=== PATIENT | female | born 1935 | race Caucasian/White ===

== ENCOUNTER 2016-09-10 12:21 | Inpatient (IN) | payer OTHER ==
--- NOTE | 2016-09-10 12:43 | EDPHY ---
HPI/HX/ROS/PE/MDM Narrative: CHIEF COMPLAINT: Cough HPI: The patient is an anticoagulated 81 y/o female, with significant cardiac history, complaining of a productive cough for the last 5 days. She was evaluated by EMS in [place], but refused transport and her son brought her to the ED. She has associated shortness of breath when lying flat and describes clear phlegm with her cough. She denies chest pain, fever, or abdominal pain.The triage nurse noted she was hypoxemic in the 50% range upon arrival here , but she is saturating at 98% with a NRB upon assessment. REVIEW OF SYSTEMS: Aside from elements discussed in the HPI, a comprehensive 10-point review of systems was reviewed and is negative. PMH: Atrial flutter, diastolic heart failure, mitral valve replacement, hypertension, dyslipidemia, ischemic colitis, UTI - MRSA, no home O2 SOCIAL HISTORY: Nonsmoker, son at beside. Shipping And Receiving Clerk: Dr. Holder Prior medical records reviewed including ED visit 05/15/16 for UTI. PHYSICAL EXAM: General:Patient is alert, in no acute distress. SpO2 98% with NRB O2 ENT:Eyes are normal to inspection. ENT inspection normal. Neck: Normal inspection. Full range of motion. Respiratory:No respiratory distress. Poor air movement bilaterally, inspiratory and expiratory wheezing, diffuse rhonchi Cardiovascular: Regular rate and rhythm. Strong peripheral pulses. Normal cap refill. Abdomen:The abdomen is nontender to palpation. There are no peritoneal signs. There are normal bowel sounds. Back: Normal to inspection. No tenderness to palpation. Skin: Normal color. No rash. Warm and dry. Extremities: Normal appearance. Full range of motion. Neuro: Oriented x3. Normal motor function. Normal sensory function. ED Course: This is an 81 y/o female with previous cardiac history presenting with a 5-day history of a productive cough. She has inspiratory and expiratory wheezes and diffuse rales on assessment without respiratory distress. Triage noted her SpO2 was around 50% in triage, however she is saturating at 98% on NRB currently. We will trial her on a nasal cannula instead. Plan for IV, sepsis labs, flu swab, and chest x-ray. Study: Chest x-ray Indication: Cough, hypoxemia Results: Chest x-ray was obtained. The results of the study are Chronic versus recurrent infiltrates, not as severe as 6 months ago. Might this patient be aspirating?If clinically indicated noncontrast CT might be considered to determine if there is actually an infiltrate present versus scarring, and to serve as a baseline. The study was read by the radiologist, Dr. Silva. I viewed the images myself on the PACS system. Patient labs reveal elevated troponin, elevated BNP, and elevated lactate. Combined with her chest x-ray findings, she is likely experiencing an acute CHF exacerbation. EKG ordered. Patient will require admission. The 12 lead EKG was interpreted by myself. ST elevation in III, T inversions in I and avL, new from EKGs in March 2016. See hard copy and/or "tracemaster" electronic copy for interpretation. 1355: Consulted with Dr. Cox, assemblies and installations inspector. He will review EKGs and call me back. 1400: Dr. Cox agrees with my EKG interpretation and thinks these changes are acute. He recommends consult with Dr. Holder. 1409: Consulted with Dr. Holder, assemblies and installations inspector. He reviewed EKGs and plans to take patient to the stores laborer today. We are not calling a cardiac alert, but the cath team has been notified. 1426: Dr. Holder is in the ED assessing patient. MDM: This patient presents with severe hypoxia which seems likely secondary to CHF. Her ECG is concerning to me for possible STEMI, with new ST elevation in III and reciprocal changes in the lateral leads. - Data Points Laboratory Results: Laboratory Results 09/10/16 12:55 09/10/16 12:55 09/10/16 09/10/16 09/10/16 12:55 12:55 12:55 WBC RBC Hgb Hct MCV MCH MCHC RDW Plt Count MPV Neut % (Auto) Lymph % (Auto) [place] % (Auto) Eos % (Auto) Baso % (Auto) Nucleat RBC Rel Count Absolute Neuts (auto) Absolute Lymphs (auto) Absolute Monos (auto) Absolute Eos (auto) Absolute Basos (auto) Absolute Nucleated RBC Immature Gran % Immature Gran # PT 37.6 SEC H SEC (12.0-15.0) INR 3.74 H (0.83-1.16) APTT 63.5 SEC H SEC (23.0-38.0) VBG Lactic Acid 2.3 mmol/L H mmol/L (0.7-2.1) Sodium 138 mEq/L mEq/L (134-144) Potassium 4.4 mEq/L mEq/L (3.5-5.2) Chloride 96 mEq/L L mEq/L (97-110) Carbon Dioxide 30 mEq/l mEq/l (22-31) Anion Gap 12 mEq/L mEq/L (8-16) BUN 49 mg/dL H mg/dL (7-23) Creatinine 1.4 mg/dL H mg/dL (0.6-1.0) Estimated GFR 36 Glucose 156 mg/dL H mg/dL (70-100) Calcium 10.4 mg/dL mg/dL (8.5-10.4) Troponin I 0.830 ng/mL H ng/mL (0-0.034) NT-Pro-B Natriuret Pep 42419 pg/mL H pg/mL (0-450) Influenza Typ A,B (DFA) 09/10/16 09/10/16 12:55 12:45 WBC 10.18 10^3/uL H 10^3/uL (3.80-9.50) RBC 4.00 10^6/uL L 10^6/uL (4.18-5.33) Hgb 13.1 g/dL g/dL (12.6-16.3) Hct 39.8 % % (38.0-47.0) MCV 99.5 fL fL (81.5-99.8) MCH 32.8 pg pg (27.9-34.1) MCHC 32.9 g/dL g/dL (32.4-36.7) RDW 14.2 % % (11.5-15.2) Plt Count 182 10^3/uL 10^3/uL (150-400) MPV 9.8 fL fL (8.7-11.7) Neut % (Auto) 82.6 % H % (39.3-74.2) Lymph % (Auto) 9.0 % L % (15.0-45.0) [place] % (Auto) 7.6 % % (4.5-13.0) Eos % (Auto) 0.0 % L % (0.6-7.6) Baso % (Auto) 0.2 % L % (0.3-1.7) Nucleat RBC Rel Count 0.0 % % (0.0-0.2) Absolute Neuts (auto) 8.41 10^3/uL H 10^3/uL (1.70-6.50) Absolute Lymphs (auto) 0.92 10^3/uL L 10^3/uL (1.00-3.00) Absolute Monos (auto) 0.77 10^3/uL 10^3/uL (0.30-0.80) Absolute Eos (auto) 0.00 10^3/uL L 10^3/uL (0.03-0.40) Absolute Basos (auto) 0.02 10^3/uL 10^3/uL (0.02-0.10) Absolute Nucleated RBC 0.00 10^3/uL 10^3/uL (0-0.01) Immature Gran % 0.6 % % (0.0-1.1) Immature Gran # 0.06 10^3/uL 10^3/uL (0.00-0.10) PT INR APTT VBG Lactic Acid Sodium Potassium Chloride Carbon Dioxide Anion Gap BUN Creatinine Estimated GFR Glucose Calcium Troponin I NT-Pro-B Natriuret Pep Influenza Typ A,B (DFA) NEGATIVE FOR FLU (NEGATIVE) General Time Seen by Provider: 09/10/16 12:34 Initial Vital Signs: Initial Vital Signs Temperature (C) 37.3 C 09/10/16 12:30 Heart Rate 88 09/10/16 12:30 Respiratory Rate 28 H 09/10/16 12:30 Blood Pressure 90/52 L 09/10/16 12:30 O2 Sat (%) 54 L 09/10/16 12:30 O2 Delivery Mode Nasal Cannula O2 (L/minute) 4 Allergies/Adverse Reactions: aspirin Allergy (Verified 09/10/16 12:26) codeine Allergy (Verified 09/10/16 12:26) erythromycin base Allergy (Verified 09/10/16 12:26) influenza virus vacc trivalent, spl [From Fluzone] Allergy (Verified 09/10/16 12 :26) iodine Allergy (Verified 09/10/16 12:26) morphine Allergy (Verified 09/10/16 12:26) Penicillins Allergy (Verified 09/10/16 12:26) Sulfa (Sulfonamide Antibiotics) Allergy (Verified 09/10/16 12:26) Tetracyclines Allergy (Verified 09/10/16 12:26) Home Medications: Medication Instructions Recorded Acetaminophen [Tylenol 325mg (*)] 650 mg PO Q6 PRN #30 tab 03/25/16 Cholecalciferol Vit D3 [Vitamin D3 5,000 units PO DAILY #90 tab 03/25/16 (*)] Nortriptyline HCl [Pamelor 25 mg 75 mg PO HS #30 cap 03/25/16 (*)] Warfarin Sodium [Coumadin 5MG (*)] 5 mg PO DAILY AT 4PM #30 tab 03/25/16 ALPRAZolam [Xanax 0.25 MG (*)] 0.25 mg PO DAILY 09/10/16 ALPRAZolam [Xanax 0.25 MG (*)] 0.25 mg PO DAILY PRN 09/10/16 ALPRAZolam [Xanax 0.25 MG (*)] 0.75 mg PO HS 09/10/16 Amiodarone HCl [Pacerone (*)] 100 mg PO DAILY 09/10/16 Metoprolol Tartrate [Lopressor 50 50 mg PO BID 09/10/16 mg (*)] Torsemide [Demadex] 20 mg PO DAILY10 09/10/16 Departure - Departure Disposition: [facility] Inpatient Acute Clinical Impression: Elevated troponin, Valvular heart disease, Acute on chronic diastolic heart failure due to valvular disease CHF exacerbation Qualifiers: Congestive heart failure type: unspecified congestive heart failure type Qualified Code(s): I50.9 - Heart failure, unspecified Condition: Fair Report Scribed for: Roberto Carlos Arias Report Scribed by: Torri Mcgovern Date of Report: 09/10/16 Time of Report: 12:36 Physician Review and Approval Statement: Portions of this note were transcribed by an ED scribe. I personally performed the history, physical exam, and medical decision making; and confirm the accuracy of the information in the transcribed note.
[2016-09-10 13:12] LABS: % IMMATURE GRANULYOCYTES 0.6 % (0.0-1.1); ABSOLUTE IMMATURE GRANULOCYTES 0.06 10^3/uL (0.00-0.10); ADD DIFF? NO; ADD MORPH? NO; ADD SCAN? NO; ATYPICAL LYMPHOCYTE FLAG 60 (0-99); FRAGMENT RBC FLAG 0 (0-99); HEMATOCRIT 39.8 % (38.0-47.0); HEMOGLOBIN 13.1 g/dL (12.6-16.3); LEFT SHIFT FLG 10 (0-99); LIPEMIA HEMOLYSIS FLAG 80 (0-99); MEAN CELL HEMOGLOBIN 32.8 pg (27.9-34.1); MEAN CELL HEMOGLOBIN CONCENTR. 32.9 g/dL (32.4-36.7); MEAN CELL VOLUME 99.5 fL (81.5-99.8); MEAN PLATELET VOLUME 9.8 fL (8.7-11.7); PLATELET CLUMPS FLAG 0 (0-99); PLATELET COUNT 182 10^3/uL (150-400); RED CELL DISTRIBUTION WIDTH 14.2 % (11.5-15.2)
[2016-09-10 13:24] LABS: ANION GAP 12 mEq/L (8-16); CALCIUM 10.4 mg/dL (8.5-10.4); CARBON DIOXIDE 30 mEq/l (22-31); CHLORIDE 96 mEq/L (97-110); CREATININE 1.4 mg/dL (0.6-1.0); GLOMERULAR FILTRATION RATE 36; GLUCOSE 156 mg/dL (70-100); POTASSIUM 4.4 mEq/L (3.5-5.2); SODIUM 138 mEq/L (134-144)
--- NOTE | 2016-09-10 13:49 | CPEKG ---
Heart Rate: 75 RR Interval: 800 P-R Interval: 212 QRSD Interval: 106 QT Interval: 436 QTC Interval: 487 P [place]: -17 QRS [place]: 30 T Wave [place]: 132 EKG Severity - ABNORMAL ECG - EKG Impression: SINUS RHYTHM EKG Impression: ABNORMAL T, CONSIDER ISCHEMIA, LATERAL LEADS EKG Impression: BORDERLINE PROLONGED QT INTERVAL Electronically Signed By: Paras Cox 12-Sep-2016 09:00:01
[2016-09-10 13:52] LABS: INR 3.74 (0.83-1.16); PROTIME(PATIENT) 37.6 SEC (12.0-15.0)
[2016-09-10 13:53] LABS: APTT 63.5 SEC (23.0-38.0)
[2016-09-10 14:05] LABS: LACGHOST ORDER
[2016-09-10] MEDS ORDERED: FUROSEMIDE 40 MG/4 ML VIAL IVP ONE (14:28)
--- NOTE | 2016-09-10 14:50 | PDGENHP ---
History and Physical - Chief Complaint Cough - History of Present Illness 81-year-old female well known to me history of rheumatic valvular heart disease status post mitral valve replacement 1998 in her usual state of good health until of last week. She began with a dry cough. This persisted through the weekend such that today she was significantly short of breath with a persistent cough. This was nonproductive. This was not associated with chest pain. There was no fever or chills. She was brought to the emergency department by her son. She was found to be profoundly hypoxic and I am asked to evaluate her further. She had a recent admission in May for diastolic heart failure associated with atrial flutter. She has been followed in the [facility] failure [facility] without recent exacerbation. Volume status has been stable. Patient denies palpitations. She has had no syncope or near syncope. She denies PND or orthopnea. Recent nuclear stress test on April 20 showed ejection fraction 56% without ischemic burden. Her echocardiogram done at that time showed a normally functioning mitral valve prosthesis with mild aortic insufficiency moderate tricuspid regurgitation with pulmonary pressure 50 mm of mercury. She has no history of coronary artery disease. Last coronary angiogram was done in 1998. Cardiac Risk include age, hyperlipidemia. On my arrival this afternoon she is sitting comfortably in bed. She is speaking in 3/4 sentences with persistent wet cough. History Information - Allergies/Home Medication List Allergies/Adverse Reactions: aspirin Allergy (Verified 09/10/16 12:26) codeine Allergy (Verified 09/10/16 12:26) erythromycin base Allergy (Verified 09/10/16 12:26) influenza virus vacc trivalent, spl [From Fluzone] Allergy (Verified 09/10/16 12 :26) iodine Allergy (Verified 09/10/16 12:26) morphine Allergy (Verified 09/10/16 12:26) Penicillins Allergy (Verified 09/10/16 12:26) Sulfa (Sulfonamide Antibiotics) Allergy (Verified 09/10/16 12:26) Tetracyclines Allergy (Verified 09/10/16 12:26) Home Medications: ALPRAZolam [Xanax 0.25 MG (*)] 0.25 mg PO DAILY 09/10/16 [Last Taken Unknown] ALPRAZolam [Xanax 0.25 MG (*)] 0.25 mg PO DAILY PRN 09/10/16 [Last Taken Unknown ] ALPRAZolam [Xanax 0.25 MG (*)] 0.75 mg PO HS 09/10/16 [Last Taken 09/09/16] Amiodarone HCl [Pacerone (*)] 100 mg PO DAILY 09/10/16 [Last Taken Unknown] Metoprolol Tartrate [Lopressor 50 mg (*)] 50 mg PO BID 09/10/16 [Last Taken Unknown] Torsemide [Demadex] 20 mg PO DAILY10 09/10/16 [Last Taken Unknown] I have personally reviewed and updated: family history, medical history, social history, surgical history - Past Medical History atrial fibrillation, hyperlipidemia Additional medical history: Long-term chronic anticoagulation use. [place] heart class 3 diastolic heart failure. Depression anxiety. History of epistaxis. History of essential tremor. History of humeral fracture. History of hyperparathyroidism. History of irritable bowel syndrome. History of osteoarthritis. History of osteopenia. - Surgical History Additional surgical history: Placement surgery 1998 - Family History Positive for: non-pertinent - Social History Smoking Status: Never smoked Alcohol Use: None Drug Use: None ( continues to live with her independently. Accompanied today by her son. Sedentary.) Review of Systems Constitutional: Denies: chills, diaphoresis, fever, recent injury, weakness EENMT: Reports: nose congestion Cardiac: Denies: chest pain, edema, irregular heart rate, syncope Respiratory: Reports: cough, shortness of breath. Denies: wheezing Gastrointestinal: Reports: no symptoms Genitourinary: Reports: no symptoms Muscolosketal: Reports: no symptoms Skin: Reports: no symptoms Neurological: Reports: no symptoms Hematologic/Lymphatic: Reports: no symptoms Immunologic/Allergy: Reports: mold allergy, pollen allergy Physical Exam Temp Pulse Resp BP Pulse Ox 37.2 C 79 20 102/68 92 09/10/16 12:35 09/10/16 14:28 09/10/16 14:28 09/10/16 14:28 09/10/16 14:28 Constitutional: other ( mild respiratory distress) Eyes: anicteric sclera, EOMI Ears, Nose, Mouth, Throat: moist mucous membranes Cardiovascular: regular rate and rhythym, other ( mechanical mitral valve closure sound. 2/6 systolic murmur.) Peripheral Pulses: 1+: carotid (R), carotid (L), femoral (R), femoral (L), dorsalis-pedis (R), dorsalis-pedis (L) Respiratory: reduced air movement, expiratory wheeze, inspiratory crackles, respiratory distress, rhonchi Gastrointestinal: normoactive bowel sounds, soft, non-tender abdomen, no palpable masses Genitourinary: no bladder fullness, no bladder tenderness Skin: warm, normal color, other ( Ecchymosis upper extremities) Musculoskeletal: full muscle strength, no muscle tenderness Neurologic: AAOx3, No weakness, No numbness, No pronator drift Psychiatric: interacting appropriately Lymph, Heme, Immunologic: no cervical LAD, no supraclavicular LAD Lab Data & Imaging Review 09/10/16 12:55 09/10/16 12:55 WBC 10.18 10^3/uL (3.80-9.50) H 09/10/16 12:55 RBC 4.00 10^6/uL (4.18-5.33) L 09/10/16 12:55 Hgb 13.1 g/dL (12.6-16.3) 09/10/16 12:55 Hct 39.8 % (38.0-47.0) 09/10/16 12:55 MCV 99.5 fL (81.5-99.8) 09/10/16 12:55 MCH 32.8 pg (27.9-34.1) 09/10/16 12:55 MCHC 32.9 g/dL (32.4-36.7) 09/10/16 12:55 RDW 14.2 % (11.5-15.2) 09/10/16 12:55 Plt Count 182 10^3/uL (150-400) 09/10/16 12:55 MPV 9.8 fL (8.7-11.7) 09/10/16 12:55 Neut % (Auto) 82.6 % (39.3-74.2) H 09/10/16 12:55 Lymph % (Auto) 9.0 % (15.0-45.0) L 09/10/16 12:55 [place] % (Auto) 7.6 % (4.5-13.0) 09/10/16 12:55 Eos % (Auto) 0.0 % (0.6-7.6) L 09/10/16 12:55 Baso % (Auto) 0.2 % (0.3-1.7) L 09/10/16 12:55 Nucleat RBC Rel Count 0.0 % (0.0-0.2) 09/10/16 12:55 Absolute Neuts (auto) 8.41 10^3/uL (1.70-6.50) H 09/10/16 12:55 Absolute Lymphs (auto) 0.92 10^3/uL (1.00-3.00) L 09/10/16 12:55 Absolute Monos (auto) 0.77 10^3/uL (0.30-0.80) 09/10/16 12:55 Absolute Eos (auto) 0.00 10^3/uL (0.03-0.40) L 09/10/16 12:55 Absolute Basos (auto) 0.02 10^3/uL (0.02-0.10) 09/10/16 12:55 Absolute Nucleated RBC 0.00 10^3/uL (0-0.01) 09/10/16 12:55 Immature Gran % 0.6 % (0.0-1.1) 09/10/16 12:55 Immature Gran # 0.06 10^3/uL (0.00-0.10) 09/10/16 12:55 PT 37.6 SEC (12.0-15.0) H 09/10/16 12:55 INR 3.74 (0.83-1.16) H 09/10/16 12:55 APTT 63.5 SEC (23.0-38.0) H 09/10/16 12:55 VBG Lactic Acid 2.3 mmol/L (0.7-2.1) H 09/10/16 12:55 Sodium 138 mEq/L (134-144) 09/10/16 12:55 Potassium 4.4 mEq/L (3.5-5.2) 09/10/16 12:55 Chloride 96 mEq/L (97-110) L 09/10/16 12:55 Carbon Dioxide 30 mEq/l (22-31) 09/10/16 12:55 Anion Gap 12 mEq/L (8-16) 09/10/16 12:55 BUN 49 mg/dL (7-23) H 09/10/16 12:55 Creatinine 1.4 mg/dL (0.6-1.0) H 09/10/16 12:55 Estimated GFR 36 09/10/16 12:55 Glucose 156 mg/dL (70-100) H 09/10/16 12:55 Calcium 10.4 mg/dL (8.5-10.4) 09/10/16 12:55 Troponin I 0.830 ng/mL (0-0.034) H 09/10/16 12:55 NT-Pro-B Natriuret Pep 35379 pg/mL (0-450) H 09/10/16 12:55 Influenza Typ A,B (DFA) NEGATIVE FOR FLU (NEGATIVE) 09/10/16 12:45 Ambulatory Orders Acetaminophen [Tylenol 325mg (*)] 650 mg PO Q6 PRN #30 tab 03/25/16 Cholecalciferol Vit D3 [Vitamin D3 (*)] 5,000 units PO DAILY #90 tab 03/25/16 Nortriptyline HCl [Pamelor 25 mg (*)] 75 mg PO HS #30 cap 03/25/16 Warfarin Sodium [Coumadin 5MG (*)] 5 mg PO DAILY AT 4PM #30 tab 03/25/16 ALPRAZolam [Xanax 0.25 MG (*)] 0.25 mg PO DAILY 09/10/16 ALPRAZolam [Xanax 0.25 MG (*)] 0.25 mg PO DAILY PRN 09/10/16 ALPRAZolam [Xanax 0.25 MG (*)] 0.75 mg PO HS 09/10/16 Amiodarone HCl [Pacerone (*)] 100 mg PO DAILY 09/10/16 Metoprolol Tartrate [Lopressor 50 mg (*)] 50 mg PO BID 09/10/16 Torsemide [Demadex] 20 mg PO DAILY10 09/10/16 Laboratory Tests 09/10/16 09/10/16 12:55 12:55 INR 3.74 H Chloride 96 L BUN 49 H Creatinine 1.4 H Glucose 156 H Troponin I 0.830 H NT-Pro-B Natriuret Pep 05739 H Chest X-Ray results: infiltrate Visualized and Interpreted imaging results: Yes EKG Interpretation: Positive for: other ( EKG today reveals sinus rhythm at 75. Q-waves noted in [address] elevation. T-wave inversions 1 aVL. Compared to EKG from May minimal changes identified.) Assessment & Plan Assessment: CHF exacerbation (Acute)Diastolic. Elevated troponin (Acute) History of atrial fibrillation. History of valvular heart disease status post mitral valve repair. Secondary pulmonary hypertension with PA pressure 50 mm of mercury. Impression: Acute onset of cough, increasing shortness of breath over for day. Associated with an elevated brain atretic peptide, patchy infiltrates on chest x-ray and a mildly elevated troponin. Patient is found to be profoundly hypoxic with room air saturation of less than 70%. EKG not significantly different from May when she was admitted with an episode of diastolic heart failure. The present time she is hemodynamically stable with stable blood pressure and heart rate. With supplemental oxygen she is saturating above 90%. She is resting comfortably flat without complaint. Plan: Recommendations: Admission to PCU. Aggressive diuresis overnight. Considerations for Pulmonary consultation in light of patchy infiltrates query atypical pneumonia versus aspiration pneumonia versus diastolic heart failure versus amiodarone toxicity. Echocardiogram for repeat assessment of mitral valve. Continue serial cardiac enzymes. Blood cultures. Hold amiodarone for now. Continue chronic anticoagulation. No indication for acute angiogram tonight. discussed with patient's family.
[2016-09-10] MEDS ORDERED: ACETAMINOPHEN 325 MG TAB PO PRN (15:07)
[2016-09-10] MEDS ORDERED: WARFARIN SODIUM 5 MG TAB PO SCH (16:00)
[2016-09-10] MEDS ORDERED: WARFARIN SODIUM 4 MG TAB PO ONE (17:00)
[2016-09-10] MEDS: FUROSEMIDE 40 MG/4 ML VIAL IVP SCH (17:07)
[2016-09-10] MEDS: AZITHROMYCIN IV 500 MG in D5W 250 ML IV SCH (18:09)
[2016-09-10 19:26] LABS: COLOR YELLOW; LEUKOCYTE ESTERASE,URINE 3+ (NEGATIVE); NITRITE,URINE NEGATIVE (NEGATIVE)
[2016-09-10 19:30] LABS: BACTERIA 1+ /hpf (NONE SEEN); MUCUS TRACE /lpf (NONE-1+); WBC,URINE 25-50 /hpf (0-3)
[2016-09-10 19:45] LABS: MAGNESIUM 2.1 mg/dL (1.6-2.3)
[2016-09-10] MEDS: ALPRAZolam 0.25 MG TAB PO SCH (20:41)
[2016-09-10] MEDS ORDERED: NORTRIPTYLINE HCL 25 MG CAP PO SCH (21:00)
[2016-09-11 04:33] LABS: % IMMATURE GRANULYOCYTES 0.4 % (0.0-1.1); ABSOLUTE IMMATURE GRANULOCYTES 0.04 10^3/uL (0.00-0.10); ADD DIFF? NO; ADD MORPH? NO; ADD SCAN? NO; ATYPICAL LYMPHOCYTE FLAG 40 (0-99); FRAGMENT RBC FLAG 0 (0-99); HEMOGLOBIN 12.5 g/dL (12.6-16.3); LEFT SHIFT FLG 10 (0-99); LIPEMIA HEMOLYSIS FLAG 80 (0-99); MEAN CELL HEMOGLOBIN 33.1 pg (27.9-34.1); MEAN CELL HEMOGLOBIN CONCENTR. 32.9 g/dL (32.4-36.7); MEAN CELL VOLUME 100.5 fL (81.5-99.8); MEAN PLATELET VOLUME 10.4 fL (8.7-11.7); PLATELET CLUMPS FLAG 10 (0-99); PLATELET COUNT 159 10^3/uL (150-400); RED BLOOD CELL COUNT 3.78 10^6/uL (4.18-5.33); RED CELL DISTRIBUTION WIDTH 14.2 % (11.5-15.2)
[2016-09-11 04:45] LABS: ALANINE AMINOTRANSFERASE 36 IU/L (9-52); ALBUMIN 3.3 g/dL (3.5-5.0); ALKALINE PHOSPHATASE 98 IU/L (38-126); ANION GAP 9 mEq/L (8-16); ASPARTATE AMINOTRANSFERASE 49 IU/L (14-46); BILIRUBIN,TOTAL 0.4 mg/dL (0.1-1.4); CALCIUM 9.7 mg/dL (8.5-10.4); CARBON DIOXIDE 28 mEq/l (22-31); CHLORIDE 97 mEq/L (97-110); CREATININE 1.1 mg/dL (0.6-1.0); GLOMERULAR FILTRATION RATE 48; GLUCOSE 79 mg/dL (70-100); POTASSIUM 3.4 mEq/L (3.5-5.2); SODIUM 134 mEq/L (134-144); TOTAL PROTEIN 6.5 g/dL (6.3-8.2)
[2016-09-11 04:52] LABS: INR 4.3 (0.83-1.16); PROTIME(PATIENT) 42.1 SEC (12.0-15.0)
--- NOTE | 2016-09-11 08:52 | CPEKG ---
Heart Rate: 89 RR Interval: 674 P-R Interval: 208 QRSD Interval: 106 QT Interval: 428 QTC Interval: 521 P [place]: 18 QRS [place]: 34 T Wave [place]: -75 EKG Severity - ABNORMAL ECG - EKG Impression: SINUS RHYTHM EKG Impression: NONSPECIFIC T ABNORMALITIES, DIFFUSE LEADS EKG Impression: PROLONGED QT INTERVAL Electronically Signed By: Paras Cox 12-Sep-2016 09:00:08
[2016-09-11] MEDS ORDERED: PROTOCOL POTASSIUM 1 DOSE MISC PRN (09:24)
[2016-09-11] MEDS ORDERED: PROTOCOL MAGNESIUM 1 DOSE IV PRN (09:24)
[2016-09-11] MEDS: FUROSEMIDE 40 MG/4 ML VIAL IVP SCH (09:39)
[2016-09-11] MEDS: METOPROLOL SUCCINATE XR 50 MG TAB PO SCH (09:39)
[2016-09-11] MEDS: AZITHROMYCIN IV 500 MG in D5W 250 ML IV SCH (09:39)
[2016-09-11] MEDS: ALPRAZolam 0.25 MG TAB PO SCH ×2 (09:40→21:04)
--- NOTE | 2016-09-11 09:57 | PDCARPN ---
Cardiology Progress Note Assessment/Plan: Assessment/plan: 81 yo F with HFpEF, PAFL, mechanical MVR admitted 09/10 with productive cough and profound hypoxia. Clinical picture suggestive of RUL pneumonia. In the setting of pna/hypoxia she also has some heart failure and demand ischemia with small troponin leak 1. Positive troponin: has CAC on chest CT. Last nuc was 04/2010 and did not show ischemia. Her ECG is fairly close to baseline and no CP. Med mx for now, consider outpt nuc. Cont BB. Add statin. Already on warfarin (no ASA for now) . 2. HFpEF: has received lasix. IV. Will switch to oral. 3. Mechanical MVR: normally functioning on echo. Continue warfarin (on hold at the moment for INR 4) 4. RUL pna: possible aspiration? abx started. Appreciate IM consult 5. Hypoxia: pna plus CHF. CT not necessarily suggestive of amio toxicity, but will hold amiodarone for now 6. Hx atrial flutter: currently in NSR. On warfarin. Hold amio. continue BB 7. Pos u/a: culture pending 8. HTN: stable 9. PHTN: mild. 10. ARF: creatinine 1.4 on admisison, 1.1 now. Likely prerenal Greater than 30 minutes was spent in direct patient care, discussion with Dr. Reyes, and chart review. 09/11/16 10:29 Subjective: [place] complains of cough. This is productive of yellow/green sputum. Denies SOB or CP. She reports that she fell out of bed yesterday but did not hit her head; no pain now. She denies abd pain or dysuria. She has not had any bleeding issues recently Reviewed/Discussed With: family, hospitalist Objective: Vital Signs (8 Hrs) Temp Pulse Resp BP Pulse Ox 09/11/16 07:38 36.9 C 96 20 113/59 L 90 L 09/11/16 04:00 37.1 C 77 19 116/52 L 98 Intake/Output (24 Hrs) 09/10/16 09/11/16 09/12/16 05:59 05:59 05:59 Intake Total 450 Output Total 400 Balance 50 Intake: Oral (ml) 450 Output: Urine (ml) 400 Toilet 400 Other: Weight 68.039 kg 59.6 kg Intake Quantity Yes Sufficient Number of Voids Toilet 1 coughing, mildly ill JVP 12. RRR, crisp mechanical S1. No murmur or rub Diffuse rhonchi. Decreased breath sounds RUL Abd soft, NT, ND, no obvious mass No edema Alert and oriented x 3 without gross focal neuro deficits CXR reviewed; MVR, RUL opacity Result Diagrams: 09/11/16 03:41 09/11/16 03:41 Cardiac Labs: Cardiac Lab Results (72 Hrs) 09/10/16 21:00 Troponin I 1.790 H EKG: Serial tracings reviewed, including 03/2016: NSR, isolated JOVANNA in III, resolved in most recent ECG. Diffuse ST abnormalities. ST abnormalities similar to prior Telemetry: NSR Echocardiogram: Reviewed; LVEF 55 without regional WMA. Normally functioning mechanical MVR. PASP 40. mod TR ICD10 Worksheet Patient Problems: Problems Problem Status Onset CHF exacerbation Acute Elevated troponin Acute Acute on chronic diastolic heart failure due to valvular disease Acute Atrial flutter Acute MRSA (methicillin resistant Staphylococcus aureus) Acute 05/11/16 Valvular heart disease Acute
[2016-09-11] MEDS: AMIODARONE HCL 200 MG TAB PO SCH (10:09)
[2016-09-11 10:23] LABS: POTASSIUM 3.3 mEq/L (3.5-5.2)
[2016-09-11] MEDS: ATORVASTATIN CALCIUM 20 MG TAB PO SCH (12:09)
[2016-09-11] MEDS ORDERED: POTASSIUM CL 10 MEQ TAB PO ONE (12:22)
--- NOTE | 2016-09-11 13:41 | ECHO ---
[id number] + + [phone] : : [place] [address] : : [phone] + + Adult Echocardiographic Report + ---------+ :Name: JANNA AZARlaurengiselle Date: 09/11/2016 08:09 AM : : Hospital Admission Number: [id number] Leidy galloway: 206: :: 1935 Gender: Female Height: 62 i n : :Age: 81 yrs Race: WH Weight: 155 lb : :Reason For Study: Eval LV Fx : : BSA: 1.7 met ers2 : :History: CHF, Cough, Mechanical Mitral Valve : + ---------+ MMode/2D Measurements \T\ Calculations IVSd: 0.81 cm LVIDd: 4.2 cm FS: 21.8 % Ao root diam: 2.7 cm LVPWd: 0.87 cm LVIDs: 3.3 cm EDV(Teich): 79.7 ml ACS: 2.0 cm ESV(Teich): 44.2 ml EF(Teich): 44.5 % Normal Measurement Values: + + :LVIDd (3.5-5.7cm) IVSd (0.6-1.1cm) LVPWd (0.6-1.1cm) Aortic Root (2.0-3.7cm)Left Atrium (1.5-4.0cm): :LV Vol(d) (76-115ml) LV Vol(s) (29-48ml) Ejec Fraction (50-65%)PV Brant (0.6- 1.2m/s) TV Brant (0.4-1.0m/s) : :MV E Brant (0.8-1.0m/s)MV A Brant (0.3-1.0m/s)LVOT Brant (0.7-1.2m/s) Asc Ao Brant ( 0.9-1.8m/s) : + + Doppler Measurements \T\ Calculations MV E max brnat: MV V2 mean: MV P1/2t max brant: Ao V2 max: 104.1 cm/sec 101.6 cm/sec 118.1 cm/sec 142.5 cm/sec MV A max brant: MV mean PG: MV P1/2t: 60.8 msec Ao max P.0 cm/sec 4.4 mmHg MVA(P1/2t): 3.6 cm2 8.1 mmHg MV E/A: 0.93 MV V2 VTI: MV dec slope: 24.6 cm 568.7 cm/sec2 AI max brant: LV V1 max: TR max brant: 287.8 cm/sec 73.1 cm/sec 294.5 cm/sec AI max PG: LV V1 max PG: TR max P.7 mmHg 33.1 mmHg 2.1 mmHg RAP systole: 5.0 mmHg AI dec slope: RVSP(TR): 39.7 mmHg 118.0 cm/sec2 AI P1/2t: 714.2 msec Left Ventricle The left ventricle is normal in size. There is normal left ventricular wall thickness. Ejection Fraction = 50-55%. There is inferior and inferoseptal hypokinesis in some views, but not confirmed in all views. There is Doppler evidence for diastolic dysfunction. Left ventricular systolic function is low normal. Right Ventricle The right ventricle is normal in size and function. Atria The left atrium is mildly dilated. Right atrial size is normal. Mitral Valve Mean transmitral gradient is 4 mmHg. There is no mitral regurgitation noted. There is a mechanical mitral valve. Tricuspid Valve There is mild tricuspid regurgitation. Right ventricular systolic pressure is 40mmHg. There is Doppler evidence for mild pulmonary hypertension. Aortic Valve The aortic valve is normal in structure and function. The aortic valve is trileaflet. There is no aortic stenosis. There is no aortic insufficiency. Pulmonic Valve The pulmonic valve is normal in structure and function. There is no pulmonic valvular regurgitation. Great Vessels The aortic root is normal size. Pericardium/Pleural There is no pericardial effusion. Conclusion A complete two-dimensional transthoracic echocardiogram was performed (2D, M-mode, Doppler and color flow Doppler). Ejection Fraction = 50-55%. Left ventricular systolic function is low normal. There is inferior and inferoseptal hypokinesis in some views, but not confirmed in all views The left atrium is mildly dilated. There is a mechanical mitral valve. Mean transmitral gradient is 4 mmHg There is mild tricuspid regurgitation. Right ventricular systolic pressure is 40mmHg. There is Doppler evidence for mild pulmonary hypertension. The aortic valve is normal in structure and function. The aortic valve is trileaflet. There is no pericardial effusion. There is a known hypermobility near the posterior chordae. This is likely subvalvular structure remnants s/p mechanical MVR Compared with 05/2015, LVEF improved. Chordal structure is similar Final Reading Physician: Dr Yohana Webber electronically signed on 09/11/2016 01:40 PM Ordering Physician: Roberto Carlos Arias Performed By: Valerio Romo, EMERSONCS
[2016-09-11] MEDS ORDERED: ALPRAZolam 0.25 MG TAB PO PRN (13:43)
[2016-09-11] MEDS: VANCOMYCIN 125 MG/2.5 ML UDL PO SCH ×2 (14:58→21:04)
[2016-09-11] MEDS: predniSONE 20 MG TAB PO SCH (14:58)
--- NOTE | 2016-09-11 15:51 | GCON ---
[f rep st] CONSULTATION INTERNAL MEDICINE CONSULT DATE OF CONSULTATION: 09/11/2016 REFERRING PHYSICIAN: Yohana Webber MD REASON FOR REFERRAL: Medical management of patient with possible pneumonia. HISTORY OF PRESENT ILLNESS: The patient is an 81-year-old with a history significant for congestive heart failure and valvular heart disease. She also was in chronic atrial fibrillation and anticoag ulated with Coumadin. She states she has a chronic cough and shortness of breath and has not noted a significant difference, however, she was brought in yesterday by her son because he noted increasi ng dry cough since last with increasing shortness of breath and dyspnea on exertion at home . She apparently has had a cough since that has worsened and became much more dyspneic. S he denies any fevers or chills. She has had no chest pain. She has had no significant edema. She states it is hard to comment on her shortness of breath since she is typically not very active at [facility]. She was admitted by Dr. Holder, given her heart disease, and on admission her O2 saturati on was quite low at around 50% on room air. She was started on a non-rebreather, treated with antib iotics for presumed pneumonia, as well as Lasix for possible fluid overload. Her respiratory status has improved, and she is down to 4 L by nasal cannula, however, continues to have a fairly producti ve cough and appears quite dyspneic to me, although she denies significant symptoms. She has a wilberto te tobacco history. She smoked at least 20 years, but quit over 40 years ago. She has a history of what she calls allergies that cause this chronic cough and has been prescribed ProAir in the past. She denies any significant weight changes. No other nausea, vomiting, belching. She has no lower extremity edema. She has chronic arthritis in her knees and denies any other neurologic complaints. REVIEW OF SYSTEMS: 10-point review of systems was done and is negative except as stated in HPI. PAST MEDICAL HISTORY: 1. Diastolic heart failure, followed by Dr. Holder. 2. Valvular heart disease with severe mitral regurgitation, status post mitral valve replacement. 3. Chronic atrial fibrillation, on anticoagulation and rate control. 4. Essential tremor. 5. Osteopenia. 6. Osteoarthritis. 7. Irritable bowel syndrome. 8. Dyslipidemia. 9. Reactive airways disease on ProAir. 10. Hyperparathyroidism with elevated calciums noted. PAST SURGICAL HISTORY: Includes an appendectomy, cataract surgery, colon resection, hysterectomy, u nilateral oophorectomy, mitral valve replacement, and tonsillectomy. FAMILY HISTORY: Negative for heart disease. SOCIAL HISTORY: She is and lives with her . She has 3 children. One of her salbador rs lives in the house with them. She rarely drinks alcohol, and quit smoking in the mid 70s. She s aid she started smoking in the early 50s in high school, and increased her smoking use once she got a job. She ambulates with the use of a walker occasionally, but not always. CURRENT MEDICATIONS: Include amiodarone 100 mg daily, Coumadin, Demadex, ProAir as needed, Toprol-X L, Zantac, Zyrtec, clonazepam, nortriptyline. ALLERGIES: Include aspirin, codeine, erythromycin, flu vaccine, morphine, penicillin, sulfa, and te tracycline. PHYSICAL EXAM: VITAL SIGNS: She has been afebrile, heart rate 85, blood pressure 98/50, respiratio ns 20, she is 97% on 4 L. GENERAL: She is an ill-appearing 81-year-old who is coughing throughout most of my exam. She is alert and oriented. HEENT: Head is atraumatic. Pupils are small, but equ al. Extraocular movements intact. Sclerae anicteric. Mucous membranes are slightly dry. Orophary nx is clear. NECK: Supple. No adenopathy. HEART: Regular, with crisp valve sounds noted anterio rly. No obvious murmur. LUNGS: She has decreased breath sounds bilateral lobes with crackles bila terally, right slightly greater than left. No obvious expiratory wheezing. ABDOMEN: Soft. No mas ses. Normal bowel sounds. EXTREMITIES: No significant pitting edema. She does have some varicosi ties noted and some chronic venous stasis changes. MUSCULOSKELETAL: She has just a trace effusion in her left knee, none on her right. No obvious joint deformities. SKIN: Intact, occasional ecchy chiquis. NEUROLOGIC: Her speech is fairly fluent. She is moving all 4 extremities. LABORATORY DATA: CBC shows white count of 9.2, hemoglobin 12.5, platelet count of 159. INR is 4.3. Electrolytes are unremarkable. BUN 46, creatinine 1.1. LFTs are normal. Troponins are slightly elevated at 1.4. Urinalysis shows mild pyuria. Electrocardiogram: She is in sinus rhythm. Conduc tion delay. Some diffuse nonspecific T-wave changes. Chest CT: Infiltrate in the right upper lobe . Bibasilar densities, likely scarring. ASSESSMENT AND PLAN: 81-year-old presents with increased cough and profound hypoxia with minimal no te of pulmonary edema on her chest CT. 1. Pneumonia, cannot rule out aspiration versus community-acquired pneumonia. Will continue curren t antibiotics as she has improved on these. We will do a speech evaluation and video as recommended . Will check respiratory panel as well as sputum culture. 2. Acute respiratory failure, likely secondary to pneumonia with possible reactive airways disease or chronic obstructive pulmonary disease exacerbation. She does have a remote history of tobacco us e and certainly her lung exam is abnormal. Will add steroids and DuoNeb as well as Mucinex. Will f ollow her respiratory status. 3. Acute on chronic diastolic congestive heart failure. Echocardiogram done this admission shows e jection fraction of 55%. Will defer to Cardiology regarding treatment of the congestive heart failu re, although I suspect most of her symptoms are likely respiratory in nature. 4. Essential tremor, stable. 5. Osteopenia. Follow up with outpatient physician. 6. Atrial fibrillation, on anticoagulation, supratherapeutic. Will monitor INRs and hold warfarin for the time being. 7. History of hyperparathyroidism. Current calcium levels are within normal limits. Outpatient fo llowup. 8. Deep vein thrombosis prophylaxis. Patient is anticoagulated. 9. Elevated troponin. I suspect this likely is related to her profound hypoxia on admission and do es not represent acute coronary syndrome. Will continue to trend troponins as needed. /[id number]/MODL
[2016-09-11] MEDS: IPRATROPIUM/ALBUTEROL 3 ML DEYVIAL IH SCH (16:35)
[2016-09-11 18:29] LABS: POTASSIUM 4.7 mEq/L (3.5-5.2)
[2016-09-11] MEDS: guaiFENesin 600 MG TAB.ER PO SCH (21:04)
[2016-09-11] MEDS: NORTRIPTYLINE HCL 25 MG CAP PO SCH (21:05)
[2016-09-12] MEDS: IPRATROPIUM/ALBUTEROL 3 ML DEYVIAL IH SCH ×5 (00:20→21:55)
[2016-09-12 04:32] LABS: HEMATOCRIT 36.9 % (38.0-47.0); HEMOGLOBIN 11.8 g/dL (12.6-16.3); MEAN CELL HEMOGLOBIN 31.9 pg (27.9-34.1); MEAN CELL VOLUME 99.7 fL (81.5-99.8); RED BLOOD CELL COUNT 3.7 10^6/uL (4.18-5.33); RED CELL DISTRIBUTION WIDTH 13.6 % (11.5-15.2)
[2016-09-12 04:46] LABS: INR 4.11 (0.83-1.16); PROTIME(PATIENT) 40.6 SEC (12.0-15.0)
[2016-09-12 04:50] LABS: ANION GAP 8 mEq/L (8-16); CALCIUM 9.9 mg/dL (8.5-10.4); CARBON DIOXIDE 28 mEq/l (22-31); CHLORIDE 97 mEq/L (97-110); CREATININE 0.8 mg/dL (0.6-1.0); GLOMERULAR FILTRATION RATE > 60; GLUCOSE 139 mg/dL (70-100); MAGNESIUM 2.1 mg/dL (1.6-2.3); POTASSIUM 4.9 mEq/L (3.5-5.2); SODIUM 133 mEq/L (134-144)
[2016-09-12] MEDS: ATORVASTATIN CALCIUM 20 MG TAB PO SCH (09:37)
[2016-09-12] MEDS: METOPROLOL SUCCINATE XR 50 MG TAB PO SCH (09:37)
[2016-09-12] MEDS: predniSONE 20 MG TAB PO SCH (09:37)
[2016-09-12] MEDS: AZITHROMYCIN IV 500 MG in D5W 250 ML IV SCH (09:37)
[2016-09-12] MEDS: guaiFENesin 600 MG TAB.ER PO SCH ×2 (09:38→21:10)
[2016-09-12] MEDS: ALPRAZolam 0.25 MG TAB PO SCH ×2 (09:39→21:10)
[2016-09-12] MEDS: TORSEMIDE 20 MG TAB PO SCH (10:54)
[2016-09-12] MEDS: VANCOMYCIN 125 MG/2.5 ML UDL PO SCH ×2 (10:54→21:10)
[2016-09-12] MEDS ORDERED: predniSONE 20 MG TAB PO SCH (11:06)
--- NOTE | 2016-09-12 11:14 | HOSPPROG ---
Hospitalist Progress Note Assessment/Plan: 81-year-old with remote tobacco history presents with increased cough shortness of breath. She does have a history of valvular heart disease associated with some diastolic dysfunction. # acute respiratory failure likely multifactorial due to COPD exacerbation from bronchopneumonia either from viral etiology (see PCR) or community- acquired. # bronchopneumonia: Currently on ceftriaxone and Zithromax will likely discharge on Ceftin and Zithromax. PCR did show metapneumovirus, which may be etiology. This is complicated by acute COPD exacerbation and patient appears to be responding well to steroids and nebulizers. * Continue antibiotics will change Zithromax to oral * Continue prednisone at 60 mg daily decrease to 40 daily at discharge and continue wean * Continue duo nebs for now * Oxygen as needed, patient may need oxygen at discharge. # elevated blood sugars likely secondary to steroids will monitor. # valvular heart disease with severe mitral regurg status post mechanical valve replacement. On anticoagulation with Coumadin # diastolic dysfunction with acute congestive heart failure on admission. Diuresis per Cardiology. Patient appears fairly euvolemic at this time. # chronic atrial fibrillation on rate control and anticoagulation * Monitor daily INR while on antibiotics # the rest for medical issues are noted and stable. Disposition: Patient will likely need 1-2 more days of inpatient hospitalization for her acute respiratory failure and COPD exacerbation. She will need home care with physical therapy at the time of discharge, she is refusing any type of inpatient rehab at this time. Subjective: Patient does feel a bit better today still has significant cough and ongoing oxygen requirements. She denies any chest pain Objective: Vital Signs Temp Pulse Resp BP Pulse Ox 35.9 C L 69 20 90/53 L 96 09/12/16 07:53 09/12/16 07:53 09/12/16 07:53 09/12/16 07:53 09/12/16 07:53 Microbiology 09/11/16 16:50 - Final Sputum, Expectorated Laboratory Results 09/12/16 03:33 09/12/16 03:33 09/11/16 09/12/16 09/13/16 05:59 05:59 05:59 Intake Total 450 1320 Output Total 400 600 Balance 50 720 PT 40.6 SEC (12.0-15.0) H 09/12/16 03:33 INR 4.11 (0.83-1.16) H 09/12/16 03:33 - Physical Exam Constitutional: no apparent distress, chronically ill appearing Eyes: PERRL Ears, Nose, Mouth, Throat: moist mucous membranes Cardiovascular: regular rate and rhythym, systolic murmur, No edema Respiratory: expiratory wheeze, inspiratory crackles, bronchial breath sounds, respiratory distress, other (Cough) Gastrointestinal: normoactive bowel sounds, soft, non-tender abdomen, no palpable masses Genitourinary: no bladder fullness Skin: warm, normal color Musculoskeletal: generalized weakness Neurologic: AAOx3 Psychiatric: interacting appropriately, not anxious, not encephalopathic ICD10 Worksheet Patient Problems: Problems Problem Status Onset Valvular heart disease Acute Atrial flutter Acute Acute on chronic diastolic heart failure due to valvular disease Acute MRSA (methicillin resistant Staphylococcus aureus) Acute 05/11/16 CHF exacerbation Acute Elevated troponin Acute
--- NOTE | 2016-09-12 11:59 | PDCARPN ---
Cardiology Progress Note Assessment/Plan: Assessment/plan: 81 yo F with HFpEF, PAFL, mechanical MVR admitted 09/10 with productive cough and profound hypoxia. Clinical picture suggestive of RUL pneumonia. Respiratory panel positive for human metapneumovirus. In the setting of hypoxia she also has some heart failure and demand ischemia with small troponin leak. 1. Positive troponin: has CAC on chest CT. Last nuc was 04/2010 and did not show ischemia. Her ECG is fairly close to baseline and no CP. Med mx for now, consider outpt nuc. Cont BB. Add statin. Already on warfarin (no ASA for now) . 2. HFpEF: has received lasix. IV. Changed to oral demadex 09/11 3. Mechanical MVR: normally functioning on echo. Continue warfarin (on hold at the moment for INR 4) 4. RUL pna: Appreciate IM consult. Appears viral. On steroids. 5. Hypoxia: pna plus CHF. CT not necessarily suggestive of amio toxicity, but will hold amiodarone for now 6. Hx atrial flutter: currently in NSR. On warfarin. Hold amio. continue BB 7. Pos u/a: contaminated 8. HTN: stable 9. PHTN: mild. 10. ARF: creatinine 1.4 on admisison, 1.1 now. Likely prerenal Discussed with Dr. Reyes and patient's daughter. 09/12/16 12:00 Subjective: Eboni has peristent cough and SOB. No CP Reviewed/Discussed With: family, hospitalist Objective: Vital Signs (8 Hrs) Temp Pulse Resp BP Pulse Ox 09/12/16 07:53 35.9 C L 69 20 90/53 L 96 09/12/16 05:20 74 15 95 09/12/16 04:00 36.4 C 84 18 105/61 94 Intake/Output (24 Hrs) 09/11/16 09/12/16 09/13/16 05:59 05:59 05:59 Intake Total 450 1320 Output Total 400 600 Balance 50 720 Intake: Oral (ml) 450 1000 IV Infused (ml) 320 Azithromycin IV 500 mg In 260 D5w 250 ml @ 255 mls/hr IV DAILY [facility] Rx#: [id number] cefTRIAXone 1 GM/DEXTROSE 60 50 ml @ 100 mls/hr IV DAILY [facility] Rx#:[id number] Output: Urine (ml) 400 600 Bedside Commode 200 Toilet 400 400 Other: Weight 68.039 kg 59.8 kg Intake Quantity Yes Yes Sufficient Number of Voids Incontinence 1 Toilet 1 Number of Stools Toilet 0 coughing JVP 10 RRR crisp mech S1. No murmur, rub, gallop Diffuse insp and exp wheeze No edema Result Diagrams: 09/12/16 03:33 09/12/16 03:33 Cardiac Labs: Cardiac Lab Results (72 Hrs) 09/11/16 09/10/16 03:41 21:00 Troponin I 1.460 H 1.790 H Telemetry: NSR ICD10 Worksheet Patient Problems: Problems Problem Status Onset Valvular heart disease Acute Atrial flutter Acute Acute on chronic diastolic heart failure due to valvular disease Acute MRSA (methicillin resistant Staphylococcus aureus) Acute 05/11/16 CHF exacerbation Acute Elevated troponin Acute
[2016-09-12 20:10] LABS: POTASSIUM 4.5 mEq/L (3.5-5.2)
[2016-09-12] MEDS: NORTRIPTYLINE HCL 25 MG CAP PO SCH (21:10)
[2016-09-13 05:47] LABS: INR 4.19 (0.83-1.16); PROTIME(PATIENT) 41.2 SEC (12.0-15.0)
[2016-09-13 05:53] LABS: ANION GAP 9 mEq/L (8-16); CALCIUM 10.1 mg/dL (8.5-10.4); CARBON DIOXIDE 31 mEq/l (22-31); CHLORIDE 98 mEq/L (97-110); CREATININE 0.9 mg/dL (0.6-1.0); GLOMERULAR FILTRATION RATE > 60; GLUCOSE 108 mg/dL (70-100); MAGNESIUM 2.1 mg/dL (1.6-2.3); POTASSIUM 4.5 mEq/L (3.5-5.2); SODIUM 138 mEq/L (134-144)
[2016-09-13] MEDS: IPRATROPIUM/ALBUTEROL 3 ML DEYVIAL IH SCH ×4 (06:08→21:58)
[2016-09-13] MEDS: AZITHROMYCIN 250 MG TAB PO SCH ×2 (09:49→09:51)
[2016-09-13] MEDS: TORSEMIDE 20 MG TAB PO SCH (09:49)
[2016-09-13] MEDS: ATORVASTATIN CALCIUM 20 MG TAB PO SCH (09:50)
[2016-09-13] MEDS: METOPROLOL SUCCINATE XR 50 MG TAB PO SCH (09:50)
[2016-09-13] MEDS: guaiFENesin 600 MG TAB.ER PO SCH ×2 (09:50→20:05)
[2016-09-13] MEDS: ALPRAZolam 0.25 MG TAB PO SCH ×2 (09:50→20:05)
[2016-09-13] MEDS: VANCOMYCIN 125 MG/2.5 ML UDL PO SCH ×2 (09:54→20:05)
--- NOTE | 2016-09-13 10:23 | HOSPPROG ---
Hospitalist Progress Note Assessment/Plan: 81-year-old with remote tobacco history presents with increased cough shortness of breath. She does have a history of valvular heart disease associated with some diastolic dysfunction. # acute respiratory failure likely multifactorial due to COPD exacerbation from bronchopneumonia either from viral etiology (see PCR) or community- acquired. # bronchopneumonia: Currently on ceftriaxone and Zithromax will likely discharge on Ceftin and Zithromax. PCR did show metapneumovirus, which may be etiology. This is complicated by acute COPD exacerbation and patient appears to be responding well to steroids and nebulizers. * Continue antibiotics will change Zithromax to oral * Continue prednisone at 60 mg daily decrease to 40 daily at discharge and continue wean * Continue duo nebs for now * Oxygen as needed, patient may need oxygen at discharge. # elevated blood sugars likely secondary to steroids will monitor. # valvular heart disease with severe mitral regurg status post mechanical valve replacement. On anticoagulation with Coumadin. Still with elevated INR. Holding Coumadin. #?Amiodarone Toxicity. Cards holding Amiodarone # diastolic dysfunction with acute congestive heart failure on admission. Diuresis per Cardiology. Patient appears fairly euvolemic at this time. Continue with fluid restriction. Continue Torsemide # chronic atrial fibrillation on rate control and anticoagulation * Monitor daily INR while on antibiotics * elevated INR at this time # the rest for medical issues are noted and stable. Disposition: Patient will likely need 1-2 more days of inpatient hospitalization for her acute respiratory failure and COPD exacerbation. She will need home care with physical therapy at the time of discharge, she is refusing any type of inpatient rehab at this time. Overall she continues to improve. Expect that she will be ready for d/c soon. Subjective: Feels better. Still with Cough. INR is still elevated. First encounter with this patient Objective: Vital Signs Temp Pulse Resp BP Pulse Ox 36.6 C 74 18 103/50 L 96 09/13/16 07:37 09/13/16 09:50 09/13/16 07:37 09/13/16 09:50 09/13/16 07:37 Microbiology 09/11/16 16:50 - Final Sputum, Expectorated Laboratory Results 09/12/16 03:33 09/13/16 04:13 09/12/16 09/13/16 09/14/16 05:59 05:59 05:59 Intake Total 1320 1225 Output Total 600 Balance 720 1225 PT 41.2 SEC (12.0-15.0) H 09/13/16 04:13 INR 4.19 (0.83-1.16) H 09/13/16 04:13 - Physical Exam Constitutional: no apparent distress, appears nourished, not in pain Eyes: PERRL, anicteric sclera, EOMI Ears, Nose, Mouth, Throat: moist mucous membranes, hearing normal, ears appear normal, no oral mucosal ulcers Cardiovascular: regular rate and rhythym, no murmur, rub, or gallop, No edema Respiratory: expiratory wheeze, rhonchi, No respiratory distress Gastrointestinal: normoactive bowel sounds, soft, non-tender abdomen, no palpable masses Genitourinary: no bladder fullness Skin: warm Neurologic: AAOx3 Psychiatric: interacting appropriately, not anxious ICD10 Worksheet Patient Problems: Problems Problem Status Onset Acute on chronic diastolic heart failure due to valvular disease Acute CHF exacerbation Acute Elevated troponin Acute Valvular heart disease Acute Atrial flutter Acute MRSA (methicillin resistant Staphylococcus aureus) Acute 05/11/16
--- NOTE | 2016-09-13 12:09 | PDCARPN ---
Cardiology Progress Note Assessment/Plan: Assessment/plan: 81 yo F with HFpEF, PAFL, mechanical MVR admitted 09/10 with productive cough and profound hypoxia. Clinical picture suggestive of RUL pneumonia. Respiratory panel positive for human metapneumovirus. In the setting of hypoxia she also has some heart failure and demand ischemia with small troponin leak. 1. Positive troponin: has CAC on chest CT. Last nuc was 04/2010 and did not show ischemia. Her ECG is fairly close to baseline and no CP. Med mx for now, consider outpt nuc. Cont BB. Add statin. Already on warfarin (no ASA for now) . 2. HFpEF: has received lasix. IV. Changed to oral demadex 09/11 . Appears euvolemic 3. Mechanical MVR: normally functioning on echo. Continue warfarin (on hold at the moment for INR 4) 4. RUL pna: Appreciate IM consult. Appears viral but some concern about community-acquired bacterial pneumonia as well. Therefore she is on antibiotics. On steroids. 5. Hypoxia: pna plus CHF. CT not necessarily suggestive of amio toxicity, but will hold amiodarone for now 6. Hx atrial flutter: currently in NSR. On warfarin. Hold amio. continue BB 7. Pos u/a: contaminated 8. HTN: stable 9. PHTN: mild. 10. ARF: creatinine 1.4 on admisison, 1.1 now. Likely prerenal 09/13/16 12:10 Subjective: Eboni complains of persistent cough. She is not particularly short of breath. No angina. Objective: Vital Signs (8 Hrs) Temp Pulse Resp BP Pulse Ox 09/13/16 11:55 36.1 C 86 20 123/59 H 94 09/13/16 10:43 72 90 L 09/13/16 09:50 74 103/50 L 09/13/16 07:37 36.6 C 74 18 103/50 L 96 Intake/Output (24 Hrs) 09/12/16 09/13/16 09/14/16 05:59 05:59 05:59 Intake Total 1320 1225 Output Total 600 Balance 720 1225 Intake: Oral (ml) 1000 900 IV Infused (ml) 320 325 Azithromycin IV 500 mg In 260 265 D5w 250 ml @ 255 mls/hr IV DAILY [facility] Rx#: [id number] cefTRIAXone 1 GM/DEXTROSE 60 60 50 ml @ 100 mls/hr IV DAILY [facility] Rx#:[id number] Output: Urine (ml) 600 Bedside Commode 200 Toilet 400 Other: Weight 59.8 kg 58.8 kg Intake Quantity Yes Sufficient Number of Voids Bedside Commode 3 Incontinence 1 Toilet 1 Number of Stools Toilet 0 Coughing throughout. JVP less than 10. Regular rate and rhythm. Fleming mechanical S1. Scattered rhonchi throughout all lung [place]. Extremities are warm without edema. Result Diagrams: 09/12/16 03:33 09/13/16 04:13 Cardiac Labs: Cardiac Lab Results (72 Hrs) 09/11/16 09/10/16 03:41 21:00 Troponin I 1.460 H 1.790 H ICD10 Worksheet Patient Problems: Problems Problem Status Onset Valvular heart disease Acute Atrial flutter Acute Acute on chronic diastolic heart failure due to valvular disease Acute MRSA (methicillin resistant Staphylococcus aureus) Acute 05/11/16 CHF exacerbation Acute Elevated troponin Acute
[2016-09-13] MEDS: NORTRIPTYLINE HCL 25 MG CAP PO SCH (20:05)
[2016-09-13 20:11] LABS: POTASSIUM 4.7 mEq/L (3.5-5.2)
[2016-09-14 04:47] LABS: INR 4.11 (0.83-1.16); PROTIME(PATIENT) 40.6 SEC (12.0-15.0)
[2016-09-14 04:48] LABS: POTASSIUM 4.4 mEq/L (3.5-5.2)
[2016-09-14] MEDS: IPRATROPIUM/ALBUTEROL 3 ML DEYVIAL IH SCH ×3 (05:45→16:39)
[2016-09-14] MEDS ORDERED: AZITHROMYCIN 250 MG TAB PO ONE (08:22)
--- NOTE | 2016-09-14 08:29 | HOSPPROG ---
Hospitalist Progress Note Assessment/Plan: # acute hypoxic resp failure, multifactorial # CAP, suspect viral but given the severity of her hypoxia would complete short course of abx - extreme caution with azkeara given her long QT - one last dose (250mg) today then dc; I note she is allergic to tetracyclines which complicates tx - cont rocephin today, plan a total of 7 days of tx (stop date 09/16/16) # hx c. dif - cont supperssive vanc PO (125mg PO BID) for 5 days post abx discontinuation # COPD exacerbation - cont pred today, stop on discharge # MVR mechanical - on coumadin # supratherapeutic INR - holding coumadin # acute on chronic diastolic CHF exacerbation - diuresis per cards # holding amiodarone given concern for toxicity ## chart reviewed tele reviewed - sinus CT reviewed Subjective: waking up; still coughing Objective: Vital Signs Temp Pulse Resp BP Pulse Ox 36.4 C 73 20 122/60 H 99 09/14/16 07:57 09/14/16 07:57 09/14/16 07:57 09/14/16 07:57 09/14/16 07:57 Microbiology 09/11/16 16:50 - Final Sputum, Expectorated Sputum Culture - Final 09/11/16 10:17 Urine Culture - Final Urine,Clean Catch Five Or More [place] Types Strep Dysgalactiae Grp C/G Laboratory Results 09/12/16 03:33 09/14/16 03:45 09/13/16 09/14/16 09/15/16 05:59 05:59 05:59 Intake Total 1225 910 Output Total 700 Balance 1225 210 PT 40.6 SEC (12.0-15.0) H 09/14/16 03:45 INR 4.11 (0.83-1.16) H 09/14/16 03:45 - Physical Exam Constitutional: no apparent distress, not in pain Cardiovascular: regular rate and rhythym, other (S1 click, systolic murmur) Respiratory: no respiratory distress, no rales or rhonchi, clear to auscultation ICD10 Worksheet Patient Problems: Problems Problem Status Onset Valvular heart disease Acute Atrial flutter Acute Acute on chronic diastolic heart failure due to valvular disease Acute MRSA (methicillin resistant Staphylococcus aureus) Acute 05/11/16 CHF exacerbation Acute Elevated troponin Acute
[2016-09-14] MEDS: predniSONE 20 MG TAB PO SCH (09:10)
[2016-09-14] MEDS: METOPROLOL SUCCINATE XR 50 MG TAB PO SCH (09:10)
[2016-09-14] MEDS: VANCOMYCIN 125 MG/2.5 ML UDL PO SCH ×2 (09:10→19:39)
[2016-09-14] MEDS: ATORVASTATIN CALCIUM 20 MG TAB PO SCH (09:11)
[2016-09-14] MEDS: ALPRAZolam 0.25 MG TAB PO SCH ×2 (09:11→19:38)
[2016-09-14] MEDS: guaiFENesin 600 MG TAB.ER PO SCH ×2 (09:11→19:39)
[2016-09-14] MEDS: TORSEMIDE 20 MG TAB PO SCH (10:20)
[2016-09-14] MEDS: AMIODARONE HCL 200 MG TAB PO SCH (10:20)
--- NOTE | 2016-09-14 15:10 | PDCARPN ---
Cardiology Progress Note Assessment/Plan: Assessment/plan: 81 yo F with HFpEF, PAFL, mechanical MVR admitted 09/10 with productive cough and profound hypoxia. Clinical picture suggestive of RUL pneumonia. Respiratory panel positive for human metapneumovirus. In the setting of hypoxia she also has some heart failure and demand ischemia with small troponin leak. 1. Positive troponin: has CAC on chest CT. Last nuc was 04/2010 and did not show ischemia. Her ECG is fairly close to baseline and no CP. Med mx for now, consider outpt nuc. Cont BB. Add statin. Already on warfarin (no ASA for now) . 2. HFpEF: has received lasix. IV. Changed to oral demadex 09/11 . Appears euvolemic 3. Mechanical MVR: normally functioning on echo. Continue warfarin (on hold at the moment for INR 4) 4. RUL pna: Appreciate IM consult. Appears viral but some concern about community-acquired bacterial pneumonia as well. Therefore she is on antibiotics. On steroids. 5. Hypoxia: pna plus CHF. CT not necessarily suggestive of amio toxicity, but will hold amiodarone for now . Will likely discontinue amiodarone upon discharge. 6. Hx atrial flutter: currently in NSR. On warfarin. continue BB 7. HTN: stable 8. PHTN: mild. 9. ARF: creatinine 1.4 on admission. Now improved. 09/14/16 15:11 Subjective: Overall she feels better. Breathing is improved. Cough is less. No angina. Objective: Vital Signs (8 Hrs) Temp Pulse Resp BP Pulse Ox 09/14/16 11:55 36.3 C 77 20 115/64 91 L 09/14/16 10:51 74 16 94 09/14/16 07:57 36.4 C 73 20 122/60 H 99 Intake/Output (24 Hrs) 09/13/16 09/14/16 09/15/16 05:59 05:59 05:59 Intake Total 1225 910 Output Total 700 Balance 1225 210 Intake: Oral (ml) 900 910 IV Infused (ml) 325 Azithromycin IV 500 mg In 265 D5w 250 ml @ 255 mls/hr IV DAILY [facility] Rx#: [id number] cefTRIAXone 1 GM/DEXTROSE 60 50 ml @ 100 mls/hr IV DAILY [facility] Rx#:[id number] Output: Urine (ml) 700 Toilet 700 Other: Weight 58.8 kg 59.7 kg Number of Voids Bedside Commode 3 Incontinence 1 Toilet 1 appears fatigued. Lying flat in bed. JVP less than 10. Regular rate and rhythm. [place] mechanical S1. Occasional scattered rhonchi throughout all lung [place]. Extremities are warm without edema. Result Diagrams: 09/12/16 03:33 09/14/16 03:45 Telemetry: NSR ICD10 Worksheet Patient Problems: Problems Problem Status Onset Valvular heart disease Acute Atrial flutter Acute Acute on chronic diastolic heart failure due to valvular disease Acute MRSA (methicillin resistant Staphylococcus aureus) Acute 05/11/16 CHF exacerbation Acute Elevated troponin Acute
[2016-09-14 18:40] LABS: POTASSIUM 4.2 mEq/L (3.5-5.2)
[2016-09-14] MEDS: NORTRIPTYLINE HCL 25 MG CAP PO SCH (19:38)
[2016-09-15] MEDS: IPRATROPIUM/ALBUTEROL 3 ML DEYVIAL IH SCH ×5 (02:03→22:30)
[2016-09-15 04:56] LABS: MAGNESIUM 2.1 mg/dL (1.6-2.3); POTASSIUM 4.1 mEq/L (3.5-5.2)
--- NOTE | 2016-09-15 09:40 | HOSPPROG ---
Hospitalist Progress Note Assessment/Plan: 81-year-old with remote tobacco history presents with increased cough shortness of breath. She does have a history of valvular heart disease associated with some diastolic dysfunction. Today is my first encounter with the patient. Chart reviewed. Reviewed her care with MARLYN Kwan cardiology. # acute respiratory failure -likely multifactorial due to COPD exacerbation from bronchopneumonia # bronchopneumonia/CAP: finished azithro allergic to tetracyclines cont Rocephin/ stop date of 09/16 #COPD exacerbation/ on prednisone #Hx of C diff suppressive therapy with vanco PO BID for 5 days post abx discontinuation # MVR on OAC/ coumadin on hold due to elevated INR # acute on chronic diastolic dysfunction Diuresis per Cardiology. # chronic atrial fibrillation on rate control and anticoagulation INR supratherapeutic amio # the rest for medical issues are noted and stable Plan: she will have finished abx after tomorrow's dose, would recommend weaning off prednisone/ (prednisone 20 mg x 3 days, then Prednisone 10 mg daily then stop), treat with Vancomycin x 5 days after dc/ will need a script for this. If lung sounds have improved tomorrow, she should be fine for dc. Will need a repeat chest xray in 6 weeks for f/u care. Subjective: Eboni is tired/ didn't sleep well last night/ anxious to go home. Objective: Vital Signs Temp Pulse Resp BP Pulse Ox 36.6 C 74 19 144/75 H 100 09/15/16 07:56 09/15/16 07:56 09/15/16 07:56 09/15/16 07:56 09/15/16 07:56 Laboratory Results 09/12/16 03:33 09/15/16 04:06 09/14/16 09/15/16 09/16/16 05:59 05:59 05:59 Intake Total 910 650 Output Total 700 1500 Balance 210 -850 PT 40.6 SEC (12.0-15.0) H 09/14/16 03:45 INR 4.11 (0.83-1.16) H 09/14/16 03:45 - Physical Exam Constitutional: no apparent distress, chronically ill appearing Eyes: PERRL Ears, Nose, Mouth, Throat: hearing normal Cardiovascular: regular rate and rhythym, systolic murmur (soft) Respiratory: no respiratory distress, rhonchi, other (scattered crackles at the bases) Gastrointestinal: normoactive bowel sounds Skin: warm Musculoskeletal: generalized weakness Neurologic: AAOx3 Psychiatric: interacting appropriately, not anxious ICD10 Worksheet Patient Problems: Problems Problem Status Onset Acute on chronic diastolic heart failure due to valvular disease Acute CHF exacerbation Acute Elevated troponin Acute Valvular heart disease Acute Atrial flutter Acute MRSA (methicillin resistant Staphylococcus aureus) Acute 05/11/16
--- NOTE | 2016-09-15 09:51 | PDCARPN ---
Cardiology Progress Note Chief Complaint: DCHF 2/2 pulmonary infection/pna Assessment/Plan: Assessment: 81 yo F with PMH dyslipidemia, depression/anxiety, chronic DCHF, mechanical MVR on OAC with coumdin, htn, PAFl, previous cecal volvulus with necrosis admitted / with productive cough and profound hypoxia with O2 sats in 70s%. Daughter was ill with bronchitis preceding patient's onset of illness. Clinical picture suggestive of RUL pneumonia. Respiratory panel positive for human metapneumovirus. In the setting of hypoxia she also has some heart failure and demand ischemia with small troponin leak. #. Positive troponin: has CAC on chest CT Last nuc was 04/2010 and did not show ischemia ECG does not appear ischemic EF 50-55% on echo Med mx for now with BB/ defer ASA with use of Warfarin Atorvastatin added/ will need flp/CMP in 4-6 weeks Consider outpt nuc #. DCHF: appears mostly euvolemic on daily demadex currently (has received lasix IV in this admission) Has diuresed 9 kg since admission #. Mechanical MVR: normally functioning on echo Continue warfarin (on hold at the moment for INR 4) #. RUL pna: Appreciate IM consult Appears viral but some concern about community-acquired bacterial pneumonia as well. On IV abx- will defer to IM when to transition to PO Cont steroids likely for 1 week total #. Hypoxia: pna plus CHF. minimal O2 requirements currently possibly d/c off of it when discharged CT not necessarily suggestive of amio toxicity, but will hold amiodarone for now #. Hx atrial flutter: currently in NSR. On warfarin continue BB without amiodarone #. HTN: stable #. PHTN: mild. #. ARF: creatinine 1.4 on admission. Now improved to baseline at 0.9 #. LOS: possible d/c today if hospitalists feel she is stable for discharge Plan: Await hospitalist input. 09/15/16 09:41 Subjective: Sleeping. Spoke with daughter Lily. She is feeling better. Has been ambulating. Breathing improved. No peripheral edema. Reviewed/Discussed With: hospitalist Objective: Vital Signs (8 Hrs) Temp Pulse Resp BP Pulse Ox 09/15/16 07:56 97.8 F 74 19 144/75 H 100 09/15/16 04:00 98.2 F 82 18 102/67 96 Intake/Output (24 Hrs) 09/14/16 09/15/16 09/16/16 05:59 05:59 05:59 Intake Total 910 650 Output Total 700 1500 Balance 210 -850 Intake: Oral (ml) 910 650 Output: Urine (ml) 700 1500 Toilet 700 1500 Other: Weight 59.7 kg 59.4 kg Intake Quantity Yes Sufficient Number of Voids Incontinence 1 Toilet 1 Result Diagrams: 09/12/16 03:33 09/15/16 04:06 Cardiac Labs: Laboratory Tests 09/10/16 09/10/16 09/11/16 12:55 21:00 03:41 Troponin I 0.830 H 1.790 H 1.460 H NT-Pro-B Natriuret Pep 09/15/16 04:06 Troponin I NT-Pro-B Natriuret Pep 1030 H EKG: SR with diffuse ST-T wave abn Telemetry: reviewed/ SR Echocardiogram: reviewed - Physical Exam Constitutional: no apparent distress, No general pain Ears, Nose, Mouth, Throat: moist mucous membranes Cardiovascular: regular rate and rhythm, other (crisp prosthetic sound) Respiratory: reduced air movement, expiratory wheeze Gastrointestinal: normoactive bowel sounds, no tenderness Genitourinary: no suprapubic tenderness, no CVAT Skin: no rashes, no abrasions, other (wearing compressive stockings) ICD10 Worksheet Patient Problems: Problems Problem Status Onset Acute on chronic diastolic heart failure due to valvular disease Acute CHF exacerbation Acute Elevated troponin Acute Valvular heart disease Acute Atrial flutter Acute MRSA (methicillin resistant Staphylococcus aureus) Acute 05/11/16
[2016-09-15] MEDS: VANCOMYCIN 125 MG/2.5 ML UDL PO SCH ×2 (10:18→20:41)
[2016-09-15] MEDS: METOPROLOL SUCCINATE XR 50 MG TAB PO SCH (10:18)
[2016-09-15] MEDS: ALPRAZolam 0.25 MG TAB PO SCH ×2 (10:19→20:41)
[2016-09-15] MEDS: TORSEMIDE 20 MG TAB PO SCH (10:20)
[2016-09-15] MEDS: ATORVASTATIN CALCIUM 20 MG TAB PO SCH (10:20)
[2016-09-15] MEDS: AMIODARONE HCL 200 MG TAB PO SCH (10:21)
[2016-09-15] MEDS: guaiFENesin 600 MG TAB.ER PO SCH ×2 (10:22→20:41)
[2016-09-15] MEDS: predniSONE 20 MG TAB PO SCH (10:22)
[2016-09-15 11:48] LABS: INR 2.96 (0.83-1.16); PROTIME(PATIENT) 31.2 SEC (12.0-15.0)
[2016-09-15] MEDS ORDERED: WARFARIN SODIUM 2 MG TAB PO ONE ×2 (16:00)
[2016-09-15] MEDS: NORTRIPTYLINE HCL 25 MG CAP PO SCH (20:41)
[2016-09-15 20:47] LABS: POTASSIUM 4.1 mEq/L (3.5-5.2)
[2016-09-16 04:30] LABS: MAGNESIUM 2.1 mg/dL (1.6-2.3); POTASSIUM 4.4 mEq/L (3.5-5.2)
[2016-09-16 04:45] LABS: INR 2.46 (0.83-1.16); PROTIME(PATIENT) 26.9 SEC (12.0-15.0)
[2016-09-16] MEDS: IPRATROPIUM/ALBUTEROL 3 ML DEYVIAL IH SCH ×2 (05:47→13:05)
[2016-09-16 08:19] VITALS: BP 132/75; PULSE 69; RESP 17; TEMP 97.7; O2SAT 79
--- NOTE | 2016-09-16 09:45 | HOSPPROG ---
Hospitalist Progress Note Assessment/Plan: 81 yo f w viral pneumonitis # acute hypoxic resp failure, multifactorial WILL NEED HOME 02 # CAP, suspect viral but given the severity of her hypoxia would complete short course of abx completed course of ceftriaxone azithro see previous noted re: truncated course of azithro # hx c. dif - cont supperssive vanc PO (125mg PO BID) for 5 days post abx discontinuation # COPD exacerbation - cont pred today, taper on dc given ongoing wheezing # MVR mechanical - on coumadin # acute on chronic diastolic CHF exacerbation - diuresis per cards # holding amiodarone given concern for toxicity hypoxemia: 2/ viral pneumonitis home 02 ## Subjective: case d/w dr landa. chest imaging reviewed/interpreted by me Objective: Vital Signs Temp Pulse Resp BP Pulse Ox 36.5 C 69 17 132/75 H 79 L 09/16/16 08:00 09/16/16 08:00 09/16/16 08:00 09/16/16 08:00 09/16/16 08:00 Laboratory Results 09/12/16 03:33 09/16/16 03:36 09/15/16 09/16/16 09/17/16 05:59 05:59 05:59 Intake Total 650 1500 Output Total 1500 1200 300 Balance -850 300 -300 PT 26.9 SEC (12.0-15.0) H 09/16/16 03:36 INR 2.46 (0.83-1.16) H 09/16/16 03:36 - Physical Exam Constitutional: no apparent distress, appears nourished Eyes: PERRL, anicteric sclera Ears, Nose, Mouth, Throat: moist mucous membranes, hearing normal Cardiovascular: regular rate and rhythym, no murmur, rub, or gallop Respiratory: other (rhonchi, crackles and wheezes b/l) Gastrointestinal: normoactive bowel sounds, soft, non-tender abdomen Genitourinary: No mabry in urethra Skin: warm, normal color Musculoskeletal: full muscle strength, no muscle tenderness Neurologic: AAOx3 Psychiatric: interacting appropriately ICD10 Worksheet Patient Problems: Problems Problem Status Onset Acute on chronic diastolic heart failure due to valvular disease Acute CHF exacerbation Acute Elevated troponin Acute Valvular heart disease Acute Atrial flutter Acute MRSA (methicillin resistant Staphylococcus aureus) Acute 05/11/16
[2016-09-16] MEDS: predniSONE 20 MG TAB PO SCH (09:56)
[2016-09-16] MEDS: guaiFENesin 600 MG TAB.ER PO SCH (09:57)
[2016-09-16] MEDS: METOPROLOL SUCCINATE XR 50 MG TAB PO SCH (09:57)
[2016-09-16] MEDS: ALPRAZolam 0.25 MG TAB PO SCH (09:57)
[2016-09-16] MEDS: AMIODARONE HCL 200 MG TAB PO SCH (09:57)
[2016-09-16] MEDS: ATORVASTATIN CALCIUM 20 MG TAB PO SCH (09:57)
[2016-09-16] MEDS: VANCOMYCIN 125 MG/2.5 ML UDL PO SCH (09:58)
[2016-09-16] MEDS: TORSEMIDE 20 MG TAB PO SCH (09:58)
--- NOTE | 2016-09-16 10:40 | GDS ---
[f rep st] DISCHARGE SUMMARY PRIMARY ELECTRICAL ASSEMBLER: Dr. Juan Carlos Holder. ADMISSION DIAGNOSES: 1. Hypoxia. 2. Positive troponin. 3. History of atrial flutter. 4. Hypertension. 5. Acute renal failure. 6. Mechanical mitral valve replacement. DISCHARGE DIAGNOSES: 1. Hypoxia related to pneumonia, confirmed viral but also some concern about superinfection with co mmunity-acquired pneumonia. 2. Heart failure with preserved ejection fraction. 3. Atrial flutter, in sinus rhythm. 4. Hypertension. 5. Acute renal failure, resolved. 6. Mechanical mitral valve replacement. PROCEDURES PERFORMED: Chest CT on September 10: Posterior right upper lobe infiltrate. Basilar densi ty, likely scarring. Echocardiogram: Low normal LV systolic function with an ejection fraction of 50% to 55%. Subtle in ferior and inferoseptal hypokinesis. Mechanical mitral valve with mean transmitral gradient of 4 mm Hg. Mild tricuspid regurgitation with estimated pulmonary pressure of 40. HOSPITAL COURSE: The patient is an 81-year-old female with a history of heart failure with preserve d ejection fraction, paroxysmal atrial flutter, status post mechanical mitral valve remotely. She w as admitted with a productive cough and hypoxia. Her clinical picture was consistent with pneumonia as well as mild diastolic heart failure. Her respiratory panel returned positive for human metapne umovirus. Because of her profound hypoxia and ongoing cough and wheezing, she was also treated for possible community-acquired pneumonia. She finished a course of azithromycin and ceftriaxone. She was also started on steroids and Mucinex as well as albuterol treatments. She was seen by Internal Medicine. She did have an elevated troponin to 1.7. She had no chest pain. Her EKG was largely unchanged. S he therefore did not undergo coronary angiogram, and it was felt that this was likely related to dem and ischemia in the setting of her pneumonia. She was started on a statin. Warfarin anticoagulatio n was continued. She did receive 2 days of IV Lasix and then was switched to oral Demadex on September 11. She appeared euvolemic throughout her course. She does have a history of atrial flutter. She remained in sinus rhythm during this admission. Her beta bertha was continued. Her warfarin was continued. Her amiodarone was discontinued due to he r underlying lung process. Decision about restarting can be made during outpatient followup. Her admission creatinine was 1.4. This improved during her stay. Her BNP also improved from 14,600 on admission to 1030 on September 15. PHYSICAL EXAM: VITAL SIGNS: Blood pressure 132/75, heart rate 69. Oxygen saturation was 79% on ro om air, but 95% on 2 L nasal cannula. She was afebrile. Discharge weight is 58.9 kg. GENERAL: We ll-appearing older female in no acute distress. Intermittent cough. NECK: JVP less than 10. HEAR T: Regular rate and rhythm with crisp mechanical S1. No murmur, rub, or gallop. LUNGS: Occasiona l scattered rhonchi. EXTREMITIES: Warm without edema. DISCHARGE MEDICATIONS: Please see medication reconciliation. She will no longer be on amiodarone u nless this is resumed in the outpatient setting. She will go home with an albuterol inhaler, a 5-da y course of oral vancomycin to prophylax against C difficile as she has previously had this problem. She will also have a prednisone taper, 20 mg p.o. for 5 days and 10 mg p.o. for 5 days. Her other medications are the same. DISCHARGE INSTRUCTIONS: The patient will be discharged home. She lives with her and her yomaira richards. She has declined long term facility or home health care. She will require home oxyge n. FOLLOWUP: Follow up with Dr. Swenson in [address] Holder in 1-2 weeks. CONDITION ON DISCHARGE: Patient currently stable for discharge. /[id number]/MODL
--- NOTE | 2016-09-16 11:13 | PDIAF ---
- Diagnosis Diagnosis: viral pneumonitis Code Status: Do Not Resuscitate - Medication Management Discharge Medications: Medications to Continue on Transfer Acetaminophen [Tylenol 325mg (*)] 650 mg PO Q6 PRN #30 tab 03/25/16 [Last Taken Unknown] Cholecalciferol Vit D3 [Vitamin D3 (*)] 5,000 units PO DAILY #90 tab 03/25/16 [ Last Taken Unknown] Nortriptyline HCl [Pamelor 25 mg (*)] 75 mg PO HS #30 cap 03/25/16 [Last Taken 09/09/16] Warfarin Sodium [Coumadin 5MG (*)] 5 mg PO DAILY AT 4PM #30 tab 03/25/16 [Last Taken 09/09/16] ALPRAZolam [Xanax 0.25 MG (*)] 0.25 mg PO DAILY 09/10/16 [Last Taken Unknown] ALPRAZolam [Xanax 0.25 MG (*)] 0.25 mg PO DAILY PRN 09/10/16 [Last Taken Unknown ] ALPRAZolam [Xanax 0.25 MG (*)] 0.75 mg PO HS 09/10/16 [Last Taken 09/09/16] Torsemide [Demadex] 20 mg PO DAILY10 09/10/16 [Last Taken Unknown] Albuterol [Proventil Inhaler HFA (*)] 1 - 2 puffs IH Q4H #1 mdi 09/16/16 [Last Taken Unknown] Atorvastatin Calcium [Lipitor 20 mg (*)] 20 mg PO DAILY #90 tab 09/16/16 [Last Taken Unknown] Metoprolol Succinate Xr [Toprol Xl 50 mg (*)] 50 mg PO DAILY #90 tab 09/16/16 [ Last Taken Unknown] Torsemide [Demadex] 20 mg PO DAILY AT 10AM #90 tab 09/16/16 [Last Taken Unknown] Vancomycin [Vancocin Oral Liquid] 125 mg PO BID #10 udl 09/16/16 [Last Taken Unknown] guaiFENesin [Mucinex 600 MG (*)] 1,200 mg PO BID #10 tab.er 09/16/16 [Last Taken Unknown] predniSONE [Prednisone] 20 mg PO DAILY #8 tablet 09/16/16 [Last Taken Unknown] Discharge Medications: Refer to the Discharge Home Medication list for PRN reason. - Orders Services needed: Home Care, Registered Nurse, Physical Therapy Home Care Face to Face: I certify that this patient was under my care and that I had the required nlbf-rd-vrox encounter meeting the encounter requirements on the discharge day. My findings support the fact that the patient is homebound as defined in CMS Chapter 7 Medicare Benefits Manual 30.1.1, The condition of the patient is such that there exists a normal inability to leave home and consequently, leaving home would require a considerable and taxing effort. Diet Texture: Regular Texture Diet, Thin Liquids, Meds Whole w/Liquids - Follow Up Care Current Providers and Referrals: Miriam Swenson MD [Primary Care Provider] - As per Instructions (ONE WEEK) Juan Carlos Holder MD [Medical Doctor] - (follow up 2 weeks)
== END 2016-09-16 13:38 | disposition home health service (06) | DRG 193 ==
LOC: F2W 16:20
PROVIDERS: ADMIT Internal Medicine Interventional Cardiology; ATTEND Internal Medicine Interventional Cardiology
DX: J12.3 Human metapneumovirus pneumonia (principal); I50.31 Acute diastolic (congestive) heart failure; I48.92 Unspecified atrial flutter; N17.9 Acute kidney failure, unspecified; R09.02 Hypoxemia; I11.0 Hypertensive heart disease with heart failure; I27.2 Other secondary pulmonary hypertension; E78.5 Hyperlipidemia, unspecified; Z88.0 Allergy status to penicillin; Z95.2 Presence of prosthetic heart valve
CPT/HCPCS: 92526-GN; 92610-GN; 96374; 97116-GP; 97162-GP; 97530-GP; G8978-GP-CK; G8979-GP-CI; G8996-GN-CH; G8997-GN-CH; G8998-GN-CH; J0456; J0696

== ENCOUNTER 2018-04-30 07:07 | Inpatient (IN) | payer OTHER ==
[2018-04-30] MEDS ORDERED: NS 1,000 ML IV ONE (07:11)
--- NOTE | 2018-04-30 07:27 | EDPHY ---
HPI/HX/ROS/PE/MDM Narrative: CHIEF COMPLAINT: RLQ Abdominal Pain HPI: This patient is an anticoagulated (Coumadin) 83 year old female with past medical history including atrial flutter, mitral valve replacement, CHF, and hypertension. Significantly, the patient has history of cecal volvulus with necrosis/ischemic colitis, hospitalized in 03/2015 and 02/2016. She presents today complaining of severe pain, particularly in the lower right quadrant. This has been intermittent since Sunday. Today, the pain is constant and unbearable. She endorsees intermittent nausea as well. Her family member at bedside states that these symptoms seem similar to her prior episodes of ischemic colitis. The patient denies fever, vomiting, chest pain, shortness of breath, or other associated symptoms. REVIEW OF SYSTEMS: A comprehensive 10 system review of systems is otherwise negative aside from elements mentioned in the history of present illness and medical decision making. PMH: 1. Atrial flutter 2. Valvular heart disease status post mitral valve replacement in 1998 3. Hypertension 4. 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 Hospitalized in March [address] [facility] for this. History of c-difficile. Past medical records reviewed including admission at [facility] 03/06/16 for ischemic colitis and prior visits here at [facility]. SOCIAL HISTORY: . Lives in [place]. Retired. Family member at bedside. PHYSICAL EXAM: General: Patient is alert, uncomfortable appearing. ENT:Eyes are normal to inspection. ENT inspection normal. Neck: Normal inspection. Full range of motion. Respiratory:No respiratory distress. Breath sounds normal bilaterally. Cardiovascular: Regular tachycardia. Strong peripheral pulses. Normal cap refill. Abdomen: Severe right lower quadrant tenderness. Back: Normal to inspection. No tenderness to palpation. Skin: Normal color. No rash. Warm and dry. Extremities: Normal appearance. Full range of motion. Neuro: Oriented x3. Normal motor function. Normal sensory function. ED Course: 83 y/o female with history of ischemic/necrotic colitis s/p resection in 2014 presents with severe abdominal discomfort similar to her prior ischemic colitis events. She is very uncomfortable appearing, exquisitely tender in the RLQ on exam. Tachycardic at 126. She is afebrile. Plan for x-ray of abdomen, labs including CBC, chemistries, coag panel, UA, lactic acid. Patient tells me that due to her anticoagulation status, she can only take Tylenol for pain. I assured her we will be able to find a pain medication that will not interfere with Coumadin. Offered morphine for pain relief, and the patient adamantly declines. She rates her pain at 10/10 severity and is very uncomfortable- appearing, but continues to deny any pain medications. Reviewed x-ray abdomen. Evidence of possible bowel obstruction. Plan for CT for further evaluation. 8:00 Reviewed laboratory studies. WBC elevated at 17,000. Lactic acid negative at 1.1. Creatinine 0.7. Plan to proceed with CT abdomen/pelvis for further evaluation. 8:12 Patient reports iodine allergy. Plan to proceed with CT without IV contrast. 9:[address] Malcolm, radiologist. CT shows partial SBO. 9:[address] Warner, general surgeon. Plan to admit patient to hospitalist service. Dr. Warner is aware of the patient and will be part of her care team during her admission. Reassessed patient. Discussed imaging results and plan for admission with the patient and her daughter. They are comfortable with this plan. 9:30 Consulted with hospitalist service. Dr. Love accepts admission for SBO. - Data Points Imaging Results: Imaging Impressions Abdomen X-Ray 04/30/18 07:33 Impression: Abnormal bowel gas pattern with nonspecific features which could indicate an ileus, an enteritis, and/or developing mechanical obstruction. Imaging: Discussed imaging studies w/ faculty i on call medical assistant Radiologist, I viewed and interpreted images myself Laboratory Results: Laboratory Results 04/30/18 06:18 04/30/18 06:18 04/30/18 04/30/18 04/30/18 07:39 07:30 06:18 WBC RBC Hgb Hct MCV MCH MCHC RDW Plt Count MPV Neut % (Auto) Lymph % (Auto) Moody % (Auto) Eos % (Auto) Baso % (Auto) Nucleat RBC Rel Count Absolute Neuts (auto) Absolute Lymphs (auto) Absolute Monos (auto) Absolute Eos (auto) Absolute Basos (auto) Absolute Nucleated RBC Immature Gran % Immature Gran # PT 29.6 SEC H SEC (12.0-15.0) INR 2.82 H (0.83-1.16) VBG Lactic Acid 1.1 mmol/L mmol/L (0.7-2.1) Sodium 138 mEq/L mEq/L (135-145) Potassium 4.1 mEq/L mEq/L (3.3-5.0) Chloride 106 mEq/L mEq/L (97-110) Carbon Dioxide 26 mEq/l mEq/l (22-31) Anion Gap 6 mEq/L mEq/L (6-14) BUN 21 mg/dL mg/dL (7-23) Creatinine 0.7 mg/dL mg/dL (0.6-1.0) Estimated GFR > 60 Glucose 128 mg/dL H mg/dL (70-100) Calcium 10.8 mg/dL H mg/dL (8.5-10.4) Phosphorus 2.4 mg/dL L mg/dL (2.5-4.5) 04/30/18 06:18 WBC 16.97 10^3/uL H 10^3/uL (3.80-9.50) RBC 4.40 10^6/uL 10^6/uL (4.18-5.33) Hgb 14.4 g/dL g/dL (12.6-16.3) Hct 43.5 % % (38.0-47.0) MCV 98.9 fL fL (81.5-99.8) MCH 32.7 pg pg (27.9-34.1) MCHC 33.1 g/dL g/dL (32.4-36.7) RDW 13.2 % % (11.5-15.2) Plt Count 218 10^3/uL 10^3/uL (150-400) MPV 10.0 fL fL (8.7-11.7) Neut % (Auto) 87.7 % H % (39.3-74.2) Lymph % (Auto) 5.7 % L % (15.0-45.0) Moody % (Auto) 5.5 % % (4.5-13.0) Eos % (Auto) 0.3 % L % (0.6-7.6) Baso % (Auto) 0.3 % % (0.3-1.7) Nucleat RBC Rel Count 0.0 % % (0.0-0.2) Absolute Neuts (auto) 14.88 10^3/uL H 10^3/uL (1.70-6.50) Absolute Lymphs (auto) 0.96 10^3/uL L 10^3/uL (1.00-3.00) Absolute Monos (auto) 0.94 10^3/uL H 10^3/uL (0.30-0.80) Absolute Eos (auto) 0.05 10^3/uL 10^3/uL (0.03-0.40) Absolute Basos (auto) 0.05 10^3/uL 10^3/uL (0.02-0.10) Absolute Nucleated RBC 0.00 10^3/uL 10^3/uL (0-0.01) Immature Gran % 0.5 % % (0.0-1.1) Immature Gran # 0.09 10^3/uL 10^3/uL (0.00-0.10) PT INR VBG Lactic Acid Sodium Potassium Chloride Carbon Dioxide Anion Gap BUN Creatinine Estimated GFR Glucose Calcium Phosphorus Medications Given: Discontinued Medications Sodium Chloride (Ns) 1,000 mls @ 0 mls/hr IV EDNOW ONE; Wide Open PRN Reason: Protocol Stop: 04/30/18 07:12 Last Admin: 04/30/18 07:34 Dose: 1,000 mls General Time Seen by Provider: 04/30/18 07:16 Initial Vital Signs: Initial Vital Signs Temperature (C) 36.4 C 04/30/18 07:13 Heart Rate 124 H 04/30/18 07:13 Respiratory Rate 18 04/30/18 07:13 Blood Pressure 126/86 H 04/30/18 07:13 O2 Sat (%) 92 04/30/18 07:13 O2 Delivery Mode Room Air Allergies/Adverse Reactions: aspirin Allergy (Verified 04/30/18 07:10) codeine Allergy (Verified 04/30/18 07:10) erythromycin base Allergy (Verified 04/30/18 07:10) influenza virus vacc trivalent, spl [From Fluzone] Allergy (Verified 04/30/18 07 :10) iodine Allergy (Verified 04/30/18 07:10) morphine Allergy (Verified 04/30/18 07:10) Penicillins Allergy (Verified 04/30/18 07:10) Sulfa (Sulfonamide Antibiotics) Allergy (Verified 04/30/18 07:10) Tetracyclines Allergy (Verified 04/30/18 07:10) Home Medications: Medication Instructions Recorded Acetaminophen [Tylenol 325mg (*)] 650 mg PO Q6 PRN #30 tab 03/25/16 Cholecalciferol Vit D3 [Vitamin D3 5,000 units PO DAILY #90 tab 03/25/16 (*)] Nortriptyline HCl [Pamelor 25 mg 75 mg PO HS #30 cap 03/25/16 (*)] Warfarin Sodium [Coumadin 5MG (*)] 5 mg PO DAILY AT 4PM #30 tab 03/25/16 ALPRAZolam [Xanax 0.25 MG (*)] 0.25 mg PO DAILY 09/10/16 ALPRAZolam [Xanax 0.25 MG (*)] 0.25 mg PO DAILY PRN 09/10/16 ALPRAZolam [Xanax 0.25 MG (*)] 0.75 mg PO HS 09/10/16 Torsemide [Demadex] 20 mg PO DAILY10 09/10/16 Albuterol [Proventil Inhaler HFA 1 - 2 puffs IH Q4H #1 mdi 09/16/16 (*)] Atorvastatin Calcium [Lipitor 20 20 mg PO DAILY #90 tab 09/16/16 mg (*)] Metoprolol Succinate Xr [Toprol Xl 50 mg PO DAILY #90 tab 09/16/16 50 mg (*)] Torsemide [Demadex] 20 mg PO DAILY AT 10AM #90 tab 09/16/16 guaiFENesin [Mucinex 600 MG (*)] 1,200 mg PO BID #10 tab.er 09/16/16 Departure - Departure Disposition: [facility] Inpatient Acute Clinical Impression: Small bowel obstruction Condition: Fair Referrals: Janell Rueda DO [Primary Care Provider] - As per Instructions Report Scribed for: Roberto Carlos Arias Report Scribed by: Haley Herrera Date of Report: 04/30/18 Time of Report: 07:24 Physician Review and Approval Statement: Portions of this note were transcribed by an ED scribe. I personally performed the history, physical exam, and medical decision making; and confirm the accuracy of the information in the transcribed note.
[2018-04-30 07:43] LABS: PLATELET COUNT 218 10^3/uL (150-400)
[2018-04-30 08:05] LABS: INR 2.82 (0.83-1.16); PROTIME(PATIENT) 29.6 SEC (12.0-15.0)
[2018-04-30] MEDS ORDERED: ONDANSETRON 4 MG/2 ML VIAL IVP PRN (10:05)
[2018-04-30] MEDS ORDERED: ONDANSETRON DISINTEGRATING 4 MG TAB PO PRN (10:05)
[2018-04-30] MEDS ORDERED: ACETAMINOPHEN 325 MG TAB PO PRN (10:05)
[2018-04-30] MEDS ORDERED: PROMETHAZINE HCL 25 MG/ML INJ IVP PRN (10:05)
[2018-04-30] MEDS ORDERED: NS 1,000 ML IV SCH (10:15)
--- NOTE | 2018-04-30 10:26 | PDGENHP ---
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 Symptoms started day night and had been waxing and waning until this morning when became very severe prompting her to come to ED. She reports nausea without emesis. Had non-bloody BM yesterday but none since. Denies recent fevers. No medication changes recently (was on keflex for UTI in early February). In the ED, abdominal CT showed partial small bowel obstruction likely at prior anastomosis site. She is in quite a bit of pain. Dr Warner has been consulted. Case discussed with ED physician Roberto Carlos Arias. Prior records reviewed. History Information - Allergies/Home Medication List Allergies/Adverse Reactions: aspirin Allergy (Verified 04/30/18 07:10) codeine Allergy (Verified 04/30/18 07:10) erythromycin base Allergy (Verified 04/30/18 07:10) influenza virus vacc trivalent, spl [From Fluzone] Allergy (Verified 04/30/18 07 :10) iodine Allergy (Verified 04/30/18 07:10) morphine Allergy (Verified 04/30/18 07:10) Penicillins Allergy (Verified 04/30/18 07:10) Sulfa (Sulfonamide Antibiotics) Allergy (Verified 04/30/18 07:10) Tetracyclines Allergy (Verified 04/30/18 07:10) Home Medications: Torsemide [Demadex] 40 mg PO DAILY 09/10/16 [Last Taken 04/29/18] Cetirizine [ZyrTEC 10 mg (*)] 10 mg PO DAILY PRN 04/30/18 [Last Taken Unknown] Diazepam [Valium 2 MG (*)] 1 mg PO Q2D 04/30/18 [Last Taken 04/29/18] Herbals/Supplements -Info Only 1 ea PO DAILY 04/30/18 [Last Taken Unknown] Warfarin Sodium [Coumadin 5MG (*)] 5 mg PO DAILY 04/30/18 [Last Taken 04/29/18] I have personally reviewed and updated: family history, medical history, social history, surgical history - Past Medical History Additional medical history: cecal volvulus with bowel necrosis s/p resection (- at [facility]), C diff colitis (03/2016), mechanical MVR on chronic anticoagulation, chronic diastolic CHF, paroxysmal atrial flutter, HTN, mild pHTN, HLD, depression/anxiety, essential tremor, osteopenia, osteoarthritis, hyperparathyroidism, IBS - Surgical History Additional surgical history: Mechanical MVR in 1998, ileocectomy with ileocolic anastomosis 03/2016, appendectomy, hysterectomy, unilateral oophorectomy, tonsillectomy - Family History Positive for: non-pertinent - Social History Smoking Status: Never smoked Alcohol Use: None Drug Use: None Additional social history: Has 3 children, lives with 1 daughter. passed last year from complications of SBO. Occasionally uses walker to ambulate. Review of Systems Review of Systems: ROS: 10pt was reviewed & negative except for what was stated in HPI & below Physical Exam Physical Exam: Temp Pulse Resp BP Pulse Ox 36.4 C 124 H 18 126/86 H 92 04/30/18 07:13 04/30/18 07:13 04/30/18 07:13 04/30/18 07:13 04/30/18 07:13 Constitutional: other (very uncomfortable, occasionally in distress) Eyes: PERRL, anicteric sclera, EOMI Ears, Nose, Mouth, Throat: dry mucous membranes Cardiovascular: systolic murmur (mechanical click), tachycardia, No JVD, No edema Respiratory: no respiratory distress, no rales or rhonchi, clear to auscultation Gastrointestinal: normoactive bowel sounds, tenderness (right side), guarding ( voluntary), distension, No rebound Genitourinary: no bladder fullness, no bladder tenderness Skin: warm, normal color, no rashes or abrasions, no fluctuance, no induration, No mottled Musculoskeletal: full muscle strength, no muscle tenderness, normal joint ROM, no joint effusions Neurologic: AAOx3 Psychiatric: interacting appropriately, not anxious, not encephalopathic, thought process linear Lab Data & Imaging Review 04/30/18 06:18 04/30/18 06:18 WBC 16.97 10^3/uL (3.80-9.50) H 04/30/18 06:18 RBC 4.40 10^6/uL (4.18-5.33) 04/30/18 06:18 Hgb 14.4 g/dL (12.6-16.3) 04/30/18 06:18 Hct 43.5 % (38.0-47.0) 04/30/18 06:18 MCV 98.9 fL (81.5-99.8) 04/30/18 06:18 MCH 32.7 pg (27.9-34.1) 04/30/18 06:18 MCHC 33.1 g/dL (32.4-36.7) 04/30/18 06:18 RDW 13.2 % (11.5-15.2) 04/30/18 06:18 Plt Count 218 10^3/uL (150-400) 04/30/18 06:18 MPV 10.0 fL (8.7-11.7) 04/30/18 06:18 Neut % (Auto) 87.7 % (39.3-74.2) H 04/30/18 06:18 Lymph % (Auto) 5.7 % (15.0-45.0) L 04/30/18 06:18 [place] % (Auto) 5.5 % (4.5-13.0) 04/30/18 06:18 Eos % (Auto) 0.3 % (0.6-7.6) L 04/30/18:18 Baso % (Auto) 0.3 % (0.3-1.7) 04/30/18 06:18 Nucleat RBC Rel Count 0.0 % (0.0-0.2) 04/30/18 06:18 Absolute Neuts (auto) 14.88 10^3/uL (1.70-6.50) H 04/30/18 06:18 Absolute Lymphs (auto) 0.96 10^3/uL (1.00-3.00) L 04/30/18 06:18 Absolute Monos (auto) 0.94 10^3/uL (0.30-0.80) H 04/30/18 06:18 Absolute Eos (auto) 0.05 10^3/uL (0.03-0.40) 04/30/18 06:18 Absolute Basos (auto) 0.05 10^3/uL (0.02-0.10) 04/30/18 06:18 Absolute Nucleated RBC 0.00 10^3/uL (0-0.01) 04/30/18 06:18 Immature Gran % 0.5 % (0.0-1.1) 04/30/18 06:18 Immature Gran # 0.09 10^3/uL (0.00-0.10) 04/30/18 06:18 PT 29.6 SEC (12.0-15.0) H 04/30/18 07:30 INR 2.82 (0.83-1.16) H 04/30/18 07:30 VBG Lactic Acid 1.1 mmol/L (0.7-2.1) 04/30/18 07:39 Sodium 138 mEq/L (135-145) 04/30/18 06:18 Potassium 4.1 mEq/L (3.3-5.0) 04/30/18 06:18 Chloride 106 mEq/L (97-110) 04/30/18 06:18 Carbon Dioxide 26 mEq/l (22-31) 04/30/18 06:18 Anion Gap 6 mEq/L (6-14) 04/30/18 06:18 BUN 21 mg/dL (7-23) 04/30/18 06:18 Creatinine 0.7 mg/dL (0.6-1.0) 04/30/18 06:18 Estimated GFR > 60 04/30/18 06:18 Glucose 128 mg/dL (70-100) H 04/30/18 06:18 Calcium 10.8 mg/dL (8.5-10.4) H 04/30/18 06:18 Phosphorus 2.4 mg/dL (2.5-4.5) L 04/30/18 06:18 Visualized and Interpreted imaging results: Yes Interpretation: AXR: numerous dilated loops of bowel with air fluid levels. 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 Plan: 1. Partial small bowel obstruction: Transition point in RLQ at prior anastomosis site. She has a markedly distended but non-peritoneal abdomen without signs of necrosis on imaging and her lactate is within normal limits. For now, will manage conservatively. - NG tube placement, keep NPO - Dr Warner has been consulted 2. Mechanical MVR - INR currently therapeutic (2.5-3.5). If unable to take PO soon, will need to bridge with LMWH - If need for surgery, will need to reverse INR (FFP, vit K) 3. Leukocytosis: Reactive to #1. No signs of infection. No indication for abx. 4. Chronic diastolic HF: Appears euvolemic. - Hold diuretics for now, giving gentle IVF while NPO 5. Primary hyperparathyroidism: PTH elevated in 2016. Calcium slightly high, unlikely to be main contributor to #1. - IVF 6. HTN: Holding metoprolol while NPO. Monitor. 7. Depression: Holding nortriptyline while NPO. VTE ppx: therapeutic anticoagulation Code: full Dispo: Admit as inpatient for management of SBO.
[2018-04-30] MEDS ORDERED: WARFARIN SODIUM 5 MG TAB PO SCH (11:00)
[2018-04-30] MEDS ORDERED: LIDOCAINE 2% JELLY 5 ML TUBE TP ONE (12:30)
--- NOTE | 2018-04-30 13:55 | PDMN ---
Medical Necessity Medical necessity: Pt meets inpt criteria per MD order and MCG M-210, Intestinal Obstruction, 2 days. 83 y/o presenting w/worsening R side abd pain and distension found to have small bowel obstruction on imaging. 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 Est LOS> 2MN for management of SBO.
[2018-04-30] MEDS ORDERED: ERTAPENEM 1 GM in NS 100 ML IV ONE (17:58)
[2018-04-30] MEDS: METOPROLOL SUCCINATE XR 50 MG TAB PO SCH (20:53)
[2018-04-30] MEDS ORDERED: NORTRIPTYLINE HCL 25 MG CAP PO SCH (21:00)
[2018-05-01 05:01] LABS: PLATELET COUNT 173 10^3/uL (150-400)
[2018-05-01 05:02] LABS: INR 3.09 (0.83-1.16); PROTIME(PATIENT) 31.7 SEC (12.0-15.0)
[2018-05-01] MEDS ORDERED: ATORVASTATIN CALCIUM 20 MG TAB PO SCH (09:00)
[2018-05-01] MEDS: METOPROLOL SUCCINATE XR 50 MG TAB PO SCH (09:09)
--- NOTE | 2018-05-01 09:19 | SOAPPROG ---
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 Had 2 BMs last night. Feels better. Denies pain. O: Alert Afebrile No increased WOB Abdomen: soft, nontender, slightly distended, +BS Plan: Advance to clears. 05/01/18 09:18 Objective: Vital Signs Temp Pulse Resp BP Pulse Ox 36.7 C 124 H 16 109/66 96 05/01/18 07:52 05/01/18 07:52 05/01/18 07:52 05/01/18 07:52 05/01/18 07:52 Laboratory Results 05/01/18 04:27 05/01/18 04:27 04/30/18 05/01/18 05/02/18 05:59 05:59 05:59 Intake Total 300 Output Total 200 Balance 100 PT 31.7 SEC (12.0-15.0) H 05/01/18 04:27 INR 3.09 (0.83-1.16) H 05/01/18 04:27 ICD10 Worksheet Patient Problems: Problems Problem Status Onset Small bowel obstruction Acute Acute on chronic diastolic heart failure due to valvular disease Acute Atrial flutter Acute CHF exacerbation Acute Elevated troponin Acute MRSA (methicillin resistant Staphylococcus aureus) Acute 05/11/16 Valvular heart disease Acute
--- NOTE | 2018-05-01 10:15 | ASMTCMCOM ---
CM Note CM Note Notes: Met with patient and dtr, Lily. She lives with her dtr and is normally independent with ADLs, dtr has a equestrian trainer come to the house twice a week for physical assistance. No other needs identified, she will dc home w/dtr when medically stable, CM available for any changes. DC Plan: Independent Date Signed: 05/01/2018 10:14 AM Electronically Signed By:Birdie Sanon RN
[2018-05-01] MEDS ORDERED: LORazepam 0.5 MG TAB PO ONE ×2 (10:58→13:15)
[2018-05-01 15:35] VITALS: BP 126/73
[2018-05-01] MEDS ORDERED: WARFARIN SODIUM 2.5 MG TAB PO ONE (16:47)
--- NOTE | 2018-05-01 18:55 | PDDCSUM ---
Discharge Summary Discharge Summary: Date of Admission: April 30, 2018 Date of Discharge: May 01, 2018 Discharge Diagnoses: Partial SBO w/ abdominal pain - resolved Mechanical MVR on warfarin, therapeutic Other chronic medical issues - stable Admission Diagnoses: Partial SBO Mechanical MVR Leukocytosis, reactive CHF, diastolic Primary hyperthyroidism Hypertension Depression Consultants: General surgery-Dr. Akbar Warner. 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 Abdominal XR and CT demonstrated early, partial SBO likely at prior anastomosis site. Her general surgeon was consulted. Patient was started on medical management with NPO diet, NG tube placement for decompression, IV fluids, and p.r.n. analgesics/antiemetics. Patient responded to conservative medical management and was back to her baseline the next day. Her diet was advanced and she was tolerating a soft diet at time of discharge. Physical Exam: Gen: alert, oriented, in NAD. Abd: soft, mildly distended (note that patient has a very large abdomen at baseline), bowel sounds present, nontender throughout. MSK: ambulating. Condition: General surgery-Dr. Akbar Warner. Discharged to: Home (lives w/ daughter who is primary caregiver). Pertinent tests/labs/imaging: Initial KUB: Abnormal bowel gas pattern with nonspecific features which could indicate an ileus, an enteritis, and/or developing mechanical obstruction. CT abdomen pelvis wo contrast: 1. Findings compatible with a partial small bowel obstruction with the transition probably at the surgical site of anastomosis in the right lower quadrant and mild adjacent stranding in the mesentery. No evidence for bowel wall thickening or free intraperitoneal air. 2. Mildly complex renal cortical cysts bilaterally similar to chest CT of September 2016. No evidence for hydronephrosis. 3. Other chronic findings (see report). Repeat KUB: Initially reported cecal volvulus, but subsequent addendum indicated that pt has a large, distended, air-filled stomach in LUQ. Medications: Please see med rec form. Resume home meds. Special instructions: Return to ED for recurrent or worsening symptoms. Follow up: Follow-up in 1 week with PCP. Follow up with General surgeon in 1 week.
--- NOTE | 2018-05-07 06:20 | GCON ---
DATE OF CONSULTATION: 04/30/2018 HISTORY OF PRESENT ILLNESS: The patient is an 83-year-old female who is in the hospital for cardiac evaluation. She has a mitral valve and is on Coumadin. There is some chronic heart failure. She arroyo s also had a history of a cecal volvulus, which was complicated by small bowel necrosis requiring res ection and she was admitted because of abdominal distention and pain for [address] scan in the ER i s consistent with small bowel obstruction near the surgical anastomotic site in the right lower quadr ant. ALLERGIES: Aspirin, erythromycin base, codeine, flu vaccine, iodine, morphine, tetracycline, sulfa, and penicillins. MEDICATIONS: Demadex, Zyrtec, Valium, Coumadin, and additives. PAST MEDICAL HISTORY: Includes a cecal volvulus with resection 2 years ago. She has had C difficile problems; mechanical mitral valve replacement, on anticoagulation; congestive heart failure; atrial flutter; hypertension; hyperparathyroidism; arthritis; osteopenia; IBS; some depression. She has had the mitral valve replacement in 1998, appendectomy, hysterectomy, oophorectomy, and tonsillectomy. FAMILY HISTORY: Noncontributory. SOCIAL HISTORY: Reveals that she does not smoke. PHYSICAL EXAMINATION: GENERAL: Reveals an alert 83-year-old female in no acute distress. HEAD AND NECK: Reveals no icterus or adenopathy. NECK: Supple without bruits. CHEST: Clear and symmetric. CARDIAC: Reveals a regular rhythm. She has a mechanical valve click and mild tachycardia. ABDOME N: Soft with positive bowel sounds. She is moderately distended, tenderness in the right lower quad rant, but no peritoneal signs. EXTREMITIES: Benign with full range of motion, full pulses. No dulce a. NEUROLOGIC: Physiologic and symmetric. PSYCH: Reveals she is alert, oriented, and cooperative, but somewhat anxious. IMPRESSION: Small bowel obstruction. RECOMMENDATIONS: Would be evaluation with serial x-rays and possible small bowel follow-through. If she continues with pain, she may need to consider laparoscopy and surgery. She is refusing an NG tu be at this time. We will follow her with you. /[id number]/MODL
== END 2018-05-01 18:25 | disposition home or self-care (01) | DRG 390 ==
LOC: F3E 11:00
PROVIDERS: ADMIT Internal Medicine; ATTEND Internal Medicine
DX: K56.600 Partial intestinal obstruction, unspecified as to cause (principal); I50.9 Heart failure, unspecified; I11.0 Hypertensive heart disease with heart failure; E05.90 Thyrotoxicosis, unspecified without thyrotoxic crisis or storm; F32.9 Major depressive disorder, single episode, unspecified; Z90.49 Acquired absence of other specified parts of digestive tract; Z95.2 Presence of prosthetic heart valve; Z79.01 Long term (current) use of anticoagulants; Z88.1 Allergy status to other antibiotic agents; Z88.2 Allergy status to sulfonamides; Z88.5 Allergy status to narcotic agent; Z88.8 Allergy status to other drugs, medicaments and biological substances